=== PATIENT | female | born 1935 | race Caucasian/White ===

== ENCOUNTER 2019-10-12 10:43 | Observation (INO) ==
[2019-10-12] MEDS ORDERED: IOPAMIDOL 100 ML BOTTLE IV ONE (10:44)
[2019-10-12] MEDS ORDERED: 0.9 % SODIUM CHLORIDE 1,000 ML IV ONE (11:02)
[2019-10-12] MEDS ORDERED: METOPROLOL TARTRATE 5 MG/5 ML VIAL IV ONE ×2 (11:02→20:17)
[2019-10-12] MEDS ORDERED: MAGNESIUM SULFATE 2 GM/50 ML BAG IV ONE (11:02)
--- NOTE | 2019-10-12 11:05 | Emergency Department Note ---
General Adult HPI - General Chief complaint: Blood Pressure Problem Stated complaint: high BP Time Seen by Provider: 10/12/19 11:02 Source: patient, family Mode of arrival: wheelchair Limitations: no limitations - History of Present Illness HPI Narrative: 84-year-old female comes in for high blood pressure, headache. She was tachycardic in the 120s and 30s. She is on several blood pressure medicines including amlodipine, losartan, metoprolol, triamterene/hydrochlorothiazide. Blood pressures have been in the 160s up to 200 systolic at home. Here today it is not quite that high but in the 160s. No trouble urinating or with a bowel movement. Normal bowel movement this morning. She is having trouble thinking straight and so her son are helping with history and review of systems. No trouble breathing. Unclear if she has had a fever. Noted general malaise and fatigue - Related Data Home Medications Medication Instructions Recorded Confirmed aspirin 81 mg chewable tablet 81 mg PO QDAY 08/17/19 09/19/19 atorvastatin 10 mg tablet 10 mg PO QPM 08/17/19 09/19/19 blood sugar diagnostic See Rx Instructions .ROUTE 08/17/19 09/19/19 .MEDSUPPLY #10 each carbidopa 25 mg-levodopa 100 mg 1 tab PO .Noon tab 08/17/19 09/19/19 tablet clopidogrel 75 mg tablet 75 mg PO QAM tab 08/17/19 09/19/19 duloxetine 60 mg capsule,delayed 60 mg PO .Noon cap 08/17/19 09/19/19 release glimepiride 4 mg tablet 4 mg PO .Noon tab 08/17/19 09/19/19 losartan 100 mg tablet 100 mg PO QHS tab 08/17/19 09/19/19 metformin 500 mg tablet,extended 1,000 mg PO QPM 08/17/19 09/19/19 release 24 hr metoprolol succinate 100 mg 100 mg PO BID 08/17/19 09/19/19 tablet,extended release 24 hr ropinirole 1 mg tablet 1 mg PO BID tab 08/17/19 09/19/19 tramadol 50 mg tablet 50 mg PO QID PRN tab 08/17/19 09/19/19 trazodone 100 mg tablet 100 mg PO QHS 08/17/19 09/19/19 triamterene 37.5 1 tab PO QAM tab 08/17/19 09/19/19 mg-hydrochlorothiazide 25 mg tablet Previous Rx's Medication Instructions Recorded diaper,brief,adult,disposable See Rx Instructions .ROUTE 09/08/19 .MEDSUPPLY #68 each gabapentin 300 mg capsule 300 mg PO QHS #30 cap 09/19/19 amlodipine 2.5 mg tablet 5 mg PO BID #120 tab 10/05/19 Allergies Allergy/AdvReac Type Severity Reaction Status Date / Time No Known Drug Allergies Allergy Verified 10/12/19 10:43 Review of Systems All systems ED: reviewed and negative except as stated. Past Medical History - Past Medical History Attestation: Yes: The following information was validated with the patient. [facility] Narrative: Family History (Last Reviewed 08/31/19 @ 13:08 by Kailey Hampton CMA) Unknown Cancer Stroke Mother Ovarian cancer Father Vascular disorder Medical History (Last Reviewed 08/31/19 @ 13:07 by Kailey Hampton CMA) Macular degeneration (Chronic) Diabetic eye exam (Chronic ~05/26/18) Comprehensive diabetic foot examination, type 2 DM, encounter for (Chronic ~09/08/18) Gout (Chronic) Arthritis (Chronic) Poor sleep (Chronic) Depression (Chronic) Depression screening (Chronic ~04/30/18) BMI 36.0-36.9,adult (Chronic) Trochanteric bursitis, right hip (Chronic) Borderline type 2 diabetes mellitus (Chronic) Stroke (Chronic ~2011) UTI (urinary tract infection) (Chronic) Essential tremor (Chronic) HTN (hypertension) (Chronic) Fatigue (Chronic) B12 deficiency anemia (Chronic) Chronic kidney disease, stage 3 (moderate) (Chronic) Hyperlipidemia (Chronic) Chronic right hip pain (Chronic) Dehydration (Chronic) Iron deficiency anemia (Chronic) Acute pain of right knee (Chronic) Osteoarthritis of right knee (Chronic) 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 Alert oriented able to answer questions appropriately-but she is clearly frustrated with her healthcare situation and defers to her children. Normocephalic atraumatic. Conjunctive are clear sclerae white nonicteric. Extraocular movements are intact. No nasal discharge or congestion. Oropharynx is pink and moist. Posterior pharynx is clear. Neck is supple without lymphadenopathy thyromegaly or carotid bruit. Heart is mildly tachycardic and I can occasionally hear a skipped beat consistent with PVCs I see on the rhythm strip/telemetry. She does have a 2 out of 6 early systolic murmur. Lungs are clear to auscultation bilaterally without wheezes rales rhonchi or respiratory distress. Abdomen is soft mildly diffusely tender but no point tenderness rebound peritoneal signs or guarding. No rigidity. No pedal edema. Limitations: no limitations Course Vital Signs Temperature 96.8 F L 10/12/19 10:43 Pulse Rate 134 H 10/12/19 10:43 Respiratory Rate 18 10/12/19 10:43 Blood Pressure 189/70 10/12/19 10:43 Pulse Oximetry (%) 96 10/12/19 10:43 Temperature 96.8 F L 10/12/19 10:43 Pulse Rate 108 H 10/12/19 17:46 Respiratory Rate 22 10/12/19 17:46 Blood Pressure 186/79 10/12/19 17:46 Pulse Oximetry (%) 95 10/12/19 17:46 Medical Decision Making - Lab Data Lab results reviewed: Yes I reviewed the patient's lab results. Result diagrams: 10/12/19 11:25 10/12/19 11:25 Lab Results 10/12/19 10/12/19 10/12/19 Range/Units 11:25 11:25 11:25 WBC 11.3 H (4.50-11.00) K/mcL RBC 4.94 (3.59-5.38) M/mcL Hgb 13.6 (11.2-15.7) g/dL Hct 42.4 (34.1-44.9) % POC Hct 43.0 (36.0-48.0) % MCV 85.8 (80.0-100.0) fL MCH 27.5 (26.0-34.0) pg MCHC 32.1 (31.0-36.0) g/dL RDW 15.4 H (11.5-14.5) % Plt Count 250 (140-440) K/mcL MPV 10.5 H (7.4-10.4) fL Gran % 81.7 H (38.0-78.0) % Lymph % (Auto) 11.1 L (15.5-49.0) % [place] % (Auto) 6.3 (1.0-12.0) % Eos % (Auto) 0.6 (0.0-7.0) % Baso % (Auto) 0.3 (0.0-2.0) % Gran # 9.22 H (1.80-8.00) K/mcL Lymph # (Auto) 1.25 L (1.50-4.80) K/mcL [place] # (Auto) 0.71 (0.10-0.90) K/mcL Eos # (Auto) 0.07 (0.00-0.70) K/mcL Baso # (Auto) 0.03 (0.00-0.30) K/mcL PT 13.4 (11.9-14.5) sec INR 1.0 (0.9-1.1) D-Dimer 0.78 H (0.00-0.40) ug/ml POC Sodium 135 (133-145) mmol/L Sodium 134 (133-145) mmol/L POC Potassium 3.9 (3.3-5.1) mmol/L Potassium 4.0 (3.3-5.1) mmol/L POC Chloride 101 (96-108) mmol/L Chloride 96 (96-108) mmol/L Carbon Dioxide 22 (22-30) mmol/L POC Total CO2 24 (22-30) mmol/L Anion Gap 16.0 (8-16) POC BUN 32 H (8-23) mg/dl BUN 33 H (8-23) mg/dl Creatinine 1.3 H (0.6-1.1) mg/dl POC Creatinine 1.2 H (0.6-1.1) mg/dl GFR Calculation 37 Glucose 218 H (70-105) mg/dL POC Glucose 208 H (70-105) mg/dL Calcium 9.6 (8.6-10.4) mg/dl POC WB Ioniz Calcium 1.15 L (1.16-1.32) mmol/L Magnesium 1.7 (1.6-2.5) mg/dL Total Bilirubin 0.4 (0.0-1.0) mg/dL AST 12 (0-37) U/l ALT 15 (0-40) U/l Alkaline Phosphatase 117 (39-117) U/L Troponin T (0-0.03) ng/ml Total Protein 7.0 (5.9-8.4) gm/dL Albumin 3.6 (3.2-5.2) gm/dL Globulin 3.4 (2.2-3.7) gm/dL Albumin/Globulin Ratio 1.1 (1.0-2.3) TSH 0.84 (0.27-5.01) uIU/ml Urine Color Urine Appearance Urine pH (5.0-9.0) Ur Specific [place] (1.000-1.035) Urine Protein (NEG) mg/dL Urine Glucose (UA) (NEG) mg/dL Urine Ketones (NEG) mg/dL Urine Occult Blood (<0.03) mg/dL Urine Nitrate (NEG) Urine Bilirubin (NEG) mg/dL Urine Urobilinogen (NEG) mg/dL Ur Leukocyte Esterase (NEG) /uL Urine RBC (0-1) /hpf Urine WBC (0-4) /hpf Ur Squamous Epith Cells (0-4) /hpf Ur Transition Epith Cell (0-2) /hpf Urine Bacteria (0) /hpf Ur Culture Indicated? 10/12/19 10/12/19 10/12/19 Range/Units 11:25 13:22 15:58 WBC (4.50-11.00) K/mcL RBC (3.59-5.38) M/mcL Hgb (11.2-15.7) g/dL Hct (34.1-44.9) % POC Hct (36.0-48.0) % MCV (80.0-100.0) fL MCH (26.0-34.0) pg MCHC (31.0-36.0) g/dL RDW (11.5-14.5) % Plt Count (140-440) K/mcL MPV (7.4-10.4) fL Gran % (38.0-78.0) % Lymph % (Auto) (15.5-49.0) % [place] % (Auto) (1.0-12.0) % Eos % (Auto) (0.0-7.0) % Baso % (Auto) (0.0-2.0) % Gran # (1.80-8.00) K/mcL Lymph # (Auto) (1.50-4.80) K/mcL [place] # (Auto) (0.10-0.90) K/mcL Eos # (Auto) (0.00-0.70) K/mcL Baso # (Auto) (0.00-0.30) K/mcL PT (11.9-14.5) sec INR (0.9-1.1) D-Dimer (0.00-0.40) ug/ml POC Sodium (133-145) mmol/L Sodium (133-145) mmol/L POC Potassium (3.3-5.1) mmol/L Potassium (3.3-5.1) mmol/L POC Chloride (96-108) mmol/L Chloride (96-108) mmol/L Carbon Dioxide (22-30) mmol/L POC Total CO2 (22-30) mmol/L Anion Gap (8-16) POC BUN (8-23) mg/dl BUN (8-23) mg/dl Creatinine (0.6-1.1) mg/dl POC Creatinine (0.6-1.1) mg/dl GFR Calculation Glucose (70-105) mg/dL POC Glucose (70-105) mg/dL Calcium (8.6-10.4) mg/dl POC WB Ioniz Calcium (1.16-1.32) mmol/L Magnesium (1.6-2.5) mg/dL Total Bilirubin (0.0-1.0) mg/dL AST (0-37) U/l ALT (0-40) U/l Alkaline Phosphatase (39-117) U/L Troponin T 0.03 0.02 (0-0.03) ng/ml Total Protein (5.9-8.4) gm/dL Albumin (3.2-5.2) gm/dL Globulin (2.2-3.7) gm/dL Albumin/Globulin Ratio (1.0-2.3) TSH (0.27-5.01) uIU/ml Urine Color Yellow Urine Appearance Clear Urine pH 7.0 (5.0-9.0) Ur Specific [place] 1.021 (1.000-1.035) Urine Protein 100 A (NEG) mg/dL Urine Glucose (UA) Negative (NEG) mg/dL Urine Ketones Neg (NEG) mg/dL Urine Occult Blood Neg (<0.03) mg/dL Urine Nitrate Neg (NEG) Urine Bilirubin Neg (NEG) mg/dL Urine Urobilinogen Neg (NEG) mg/dL Ur Leukocyte Esterase 25 A (NEG) /uL Urine RBC 1 (0-1) /hpf Urine WBC 5 H (0-4) /hpf Ur Squamous Epith Cells < 1 (0-4) /hpf Ur Transition Epith Cell < 1 (0-2) /hpf Urine Bacteria 0 (0) /hpf Ur Culture Indicated? No - Radiology Data Radiology results reviewed: Yes I reviewed the patient's radiology results. Chest x-ray shows chronic findings of likely interstitial disease but no acute findings CTA of the chest shows multiple incidental findings but no serious acute findings including no pulmonary emboli - EKG Data EKG #1 EKG attestation: Yes I reviewed and interpreted this EKG., Yes There are no EKG findings of acute coronary syndrome, Yes This EKG will be read by prorate clerk EKG results narrative: Sinus tachycardia with a rate of 120 with occasional PVCs. Left atrial enlargement. Long QT. Disposition Pt seen by STOCK AND STATION AGENT/PA only: No Clinical Impression: Sinus tachycardia, Hypertensive urgency Summary: Concern for A. fib with RVR based on telemetry so we will get an EKG. If this is just a sinus tachycardia we will look for other causes including underlying infection. Ordered laboratory including urinalysis EKG chest x-ray. We will start some IV metoprolol and fluids Influenza swab is negative EKG shows sinus tachycardia-P waves for every QRS. Occasional PVC. Chest x-ray was unrevealing. CT angiogram of the chest shows no pulmonary emboli but one small pulmonary nodule that will require follow-up. Metoprolol did not help much but then she is already on oral. IV hydralazine helped some-this was very temporary We then tried Spironolactone which brought blood pressure into the 170s and 180s-but did not make a significant difference. Mag rider did help with PVCs however Headaches seem to be tied to her elevated blood pressure. We then started a nitroglycerin drip. Troponin was at the top end of normal range so was repeated 3 hours later-it actually went down Hospitalist was consulted for admission for hypertensive urgency-discussed the c ase with Dr. Lloyd Barnett, agreed to accept patient for further care and evaluation in the hospital Disposition: Xfer As Inpt ([facility]) Condition: Fair Referrals: Jessica Sow ARNP [Primary Care Provider] -
[2019-10-12 11:34] LABS: POC Blood Urea Nitrogen 32 mg/dl (8-23); POC CO2 24 mmol/L (22-30); POC Calcium, Ionized 1.15 mmol/L (1.16-1.32); POC Chloride 101 mmol/L (96-108); POC Creatinine 1.2 mg/dl (0.6-1.1); POC Glucose, Random 208 mg/dL (70-105); POC Potassium 3.9 mmol/L (3.3-5.1); POC Sodium 135 mmol/L (133-145)
--- NOTE | 2019-10-12 11:54 | XRay Report ---
HISTORY: Cardiac dysrhythmia and hypertension FINDINGS: The heart is normal in size and contour. There is no congestive heart failure. Mild increased interstitial lung markings are present in both lower lobes and around the jessica. There is no lobar consolidation. The right diaphragm is mild to moderately elevated. No pleural effusion is present. Comparison with the prior exam from 09/28/18 shows the interstitial lung disease has become worse. The elevation right diaphragm is chronic. IMPRESSION: No evidence of congestive heart failure Mild interstitial lung disease bilaterally. This is probably due to an inflammatory reaction. There may be some underlying interstitial fibrosis. Interpreted and Authenticated by: Johnny Tanner 10/12/19
[2019-10-12 12:03] LABS: Basophils # (Auto) 0.03 K/mcL (0.00-0.30); Basophils % (Auto) 0.3 % (0.0-2.0); Eosinophils # (Auto) 0.07 K/mcL (0.00-0.70); Eosinophils % (Auto) 0.6 % (0.0-7.0); Granulocytes % (Auto) 81.7 % (38.0-78.0); Hematocrit 42.4 % (34.1-44.9); Hemoglobin 13.6 g/dL (11.2-15.7); Lymphocytes # (Auto) 1.25 K/mcL (1.50-4.80); Lymphocytes % (Auto) 11.1 % (15.5-49.0); Mean Cell Volume 85.8 fL (80.0-100.0); Mean Corpuscular HGB Conc 32.1 g/dL (31.0-36.0); Mean Platelet Volume 10.5 fL (7.4-10.4); Monocytes # (Auto) 0.71 K/mcL (0.10-0.90); Monocytes % (Auto) 6.3 % (1.0-12.0); Platelet Count 250 K/mcL (140-440); RBC 4.94 M/mcL (3.59-5.38); Red Cell Distribution Width 15.4 % (11.5-14.5); WBC 11.3 K/mcL (4.50-11.00)
[2019-10-12 12:17] LABS: Prothrombin Time 13.4 sec (11.9-14.5)
[2019-10-12] MEDS ORDERED: hydrALAZINE 20 MG/ML VIAL IV ONE (12:30)
[2019-10-12 12:32] LABS: ALT/SGPT 15 U/l (0-40); AST/SGOT 12 U/l (0-37); Albumin 3.6 gm/dL (3.2-5.2); Albumin/Globulin Ratio 1.1 (1.0-2.3); Alkaline Phosphatase 117 U/L (39-117); Bilirubin,Total 0.4 mg/dL (0.0-1.0); Blood Urea Nitrogen 33 mg/dl (8-23); Calcium 9.6 mg/dl (8.6-10.4); Carbon Dioxide 22 mmol/L (22-30); Chloride 96 mmol/L (96-108); Globulin 3.4 gm/dL (2.2-3.7); Glomerular Filtration Rate 37; Glucose 218 mg/dL (70-105); Thyroid Stimulating Hormone 0.84 uIU/ml (0.27-5.01)
--- NOTE | 2019-10-12 13:12 | Cat Scan Report ---
History: Elevated serum d-dimer level, hypertension and tachycardia TECHNIQUE: The chest was imaged following injection of intravenous nonionic contrast scanning during the pulmonary arterial phase from the thoracic inlet to the adrenals. Sagittal, coronal and axial MIPS images were created. The radiation exposure was limited using dose reduction technology. FINDINGS: The pulmonary arteries are normal without evidence of emboli. The aorta is normal in caliber. There is a large amount calcified plaque along the aortic arch and descending aorta. There is no dissection. Plaque formation is also seen at the origins of the great vessels in the thoracic inlet. Heart size is normal. Moderate amount of calcified plaque is present in the coronary arteries. There is no pericardial effusion. Left lobe of the thyroid is enlarged and heterogeneous. It contains cysts and small solid nodular densities. This is probably a goiter. There are several small scattered calcified granulomata in both lungs measuring up to 3 mm in size. There are bands of scar tissue in the right middle lobe, lingula and lung bases. In the left apex there is a 5 x 6 mm noncalcified irregularly shaped nodule. There are several small to intermediate size lymph nodes in the mediastinum. The largest is in the subcarinal space and measures 1 x 2.1 cm. No enlarged hilar lymph nodes are present. There are several small noncalcified nodular densities within the lumen of the trachea which measure from 1 to 3 mm in size. IMPRESSION: No evidence of pulmonary emboli Old granulomatous disease and mild pulmonary fibrosis Nonspecific 5 x 6 mm nodule in the left upper lobe. This is too small to biopsy or to characterize by PET CT scan. Follow-up unenhanced chest CT in six months is recommended. Enlarged left lobe of the thyroid which is more likely a goiter rather than neoplasm. Moderate atherosclerotic coronary artery disease Dr. Wong was called with the results Interpreted and Authenticated by: Johnny Tanner 10/12/19
[2019-10-12 13:54] LABS: Appearance,Urine CLEAR; Bacteria,Urine 0 /hpf (0); Bilirubin,Urine NEG (NEG); Color,Urine YELLOW; Culture Indicated,Urine NO; Glucose,Urine (UA) NEGATIVE (NEG); Ketones,Urine NEG (NEG); Leukocyte Esterase,Urine 25 /uL (NEG); Nitrate,Urine NEG (NEG); Protein,Urine 100 mg/dL (NEG); Specific Gravity,Urine 1.021 (1.000-1.035); Urine Blood NEG mg/dL (<0.03); Urine RBC 1 /hpf (0-1); Urine Squamous Epithelial Cell < 1 /hpf (0-4); Urine Transitional Epi Cells < 1 /hpf (0-2); Urine WBC 5 /hpf (0-4); Urobilinogen,Urine NEG (NEG)
[2019-10-12] MEDS ORDERED: SPIRONOLACTONE 25 MG TABLET PO ONE (14:10)
[2019-10-12] MEDS ORDERED: NITROGLYCERIN/D5W 25 MG/250 ML BOTTLE IV SCH (16:45)
[2019-10-12] MEDS ORDERED: 0.9 % SODIUM CHLORIDE 250 ML IV SCH (16:45)
[2019-10-12] MEDS ORDERED: SENNOSIDES 1 TABLET PO PRN (18:11)
[2019-10-12] MEDS ORDERED: LACTULOSE 20 GM/30 ML ORAL.SOL PO PRN ×2 (18:11→20:17)
[2019-10-12] MEDS ORDERED: ONDANSETRON 4 MG/2 ML VIAL IV PRN (18:11)
[2019-10-12] MEDS ORDERED: ENALAPRILAT 1.25 MG/ML VIAL IV ONE ×2 (18:18→20:17)
[2019-10-12] MEDS ORDERED: LOSARTAN 50 MG TABLET PO SCH (18:19)
[2019-10-12] MEDS ORDERED: METOPROLOL SUCCINATE 50 MG TAB.XL.24H PO SCH (18:20)
[2019-10-12] MEDS: NITROGLYCERIN/D5W 25 MG/250 ML BOTTLE IV SCH (20:44)
[2019-10-12] MEDS: 0.9 % SODIUM CHLORIDE 250 ML IV SCH ×2 (20:45→20:47)
[2019-10-12] MEDS: LOSARTAN 50 MG TABLET PO SCH (20:55)
[2019-10-12] MEDS: METOPROLOL SUCCINATE 50 MG TAB.XL.24H PO SCH (20:55)
[2019-10-12] MEDS ORDERED: DOCUSATE SODIUM 100 MG CAPSULE PO SCH (21:00)
[2019-10-12] MEDS ORDERED: hydrALAZINE 25 MG TABLET PO SCH (21:00)
[2019-10-12] MEDS ORDERED: traMADol 50 MG TABLET PO PRN (21:15)
--- NOTE | 2019-10-12 21:29 | Internal Med History&Physical ---
Medical - H&P: HPI Patient information: Note initiated : 10/12/19 at 9:23 pm Service Date, if different from initiated Date: [] Patient: Xiomara Carty a 84 y/o F admitted on 10/12/19 for High BP. Chief Complaint: [] headache malaise Chief complaint: Headache and malaise History of present illness: Ms. Carty is a 84 year old F with hypertension on multiple medications at high dose usually running 140/90 but not 200. She lives alone but medications set out by her son in a pill box. She takes them faithfully twice a day. HR usually not elevated and she denies stress, anxiety, fear or pain other than headache and chest pain since last PM. SCHMIDT 8/10 and chest pain /. Headache improved in EMD but then worsened again and she is on a NTG drip. She came in about noon. She has had metoprolol 5 mg IV, hydralazine 10 mg IV and NTG drip. I order metoprolol and enalaprilat IV earlier but she has received it about 15 mins ago. Pt denies visual deficit. She report feeling groggy but not sleeping well. She is not confused. She has baseline presbycusis and uses hearing aids currently not in. Speaking mod tone in room she does hear ok on exam. pt report CVA 7 years ago. Recall full recovery. Uses a walker or cane due to DJD of knees. - Constitutional Constitutional: Present: headache(s), lethargy, malaise. Absent: frequent falls - EENT Additional comments: admits to unequal pupils as result of CVA 7 years ago - Cardiovascular Cardiovascular: Present: as per HPI, chest pain, rapid heart rate. Absent: diaphoresis, radiating jaw, neck or arm pain - Respiratory Respiratory: Absent: cough, dyspnea - Gastrointestinal Gastrointestinal: Absent: abdominal pain, change in bowel habits, vomiting - Genitourinary Genitourinary: Present: as per HPI. Absent: difficulty urinating - Musculoskeletal Musculoskeletal: Absent: back pain, neck pain - Neurological Neurological: Present: abnormal hearing. Absent: abnormal gait, confusion, frequent falls (no falls or head injury), syncope Medical - H&P: PMH Social history: lives alone wants DNR status reviewed with patient Smoking status: Former smoker (only a pack a week for a year 35 years ago. didnt like it) Have you smoked in the last 12 months: No Drug use: none Alcohol use: none Medical - H&P: Meds Home Medications Medication Instructions Recorded Confirmed Type aspirin 81 mg chewable tablet 81 mg PO QDAY 08/17/19 10/12/19 History atorvastatin 10 mg tablet 10 mg PO QPM 08/17/19 10/12/19 History blood sugar diagnostic See Rx Instructions .ROUTE 08/17/19 09/19/19 History .MEDSUPPLY #10 each carbidopa 25 mg-levodopa 100 mg 1 tab PO .Noon tab 08/17/19 10/12/19 History tablet clopidogrel 75 mg tablet 75 mg PO QAM tab 08/17/19 10/12/19 History duloxetine 60 mg capsule,delayed 60 mg PO .Noon cap 08/17/19 10/12/19 History release glimepiride 4 mg tablet 4 mg PO .Noon tab 08/17/19 10/12/19 History losartan 100 mg tablet 100 mg PO QHS tab 08/17/19 10/12/19 History metformin 500 mg tablet,extended 1,000 mg PO QPM 08/17/19 10/12/19 History release 24 hr metoprolol succinate 100 mg 100 mg PO BID 08/17/19 10/12/19 History tablet,extended release 24 hr ropinirole 1 mg tablet 1 mg PO BID tab 08/17/19 10/12/19 History tramadol 50 mg tablet 50 mg PO QID PRN tab 08/17/19 10/12/19 History trazodone 100 mg tablet 100 mg PO QHS 08/17/19 10/12/19 History triamterene 37.5 1 tab PO QAM tab 08/17/19 10/12/19 History mg-hydrochlorothiazide 25 mg tablet diaper,brief,adult,disposable See Rx Instructions .ROUTE 09/08/19 09/19/19 Rx .MEDSUPPLY #68 each gabapentin 300 mg capsule 300 mg PO QHS #30 cap 09/19/19 10/12/19 Rx amlodipine 2.5 mg tablet 5 mg PO BID #120 tab 10/05/19 10/12/19 Rx Allergies Allergy/AdvReac Type Severity Reaction Status Date / Time No Known Drug Allergies Allergy Verified 10/12/19 10:43 Medical - H&P: Exam - Constitutional Vitals: Temp Pulse Resp BP Pulse Ox 98.2 F 96 H 14 185/73 92 10/12/19 20:14 10/12/19 21:13 10/12/19 21:13 10/12/19 21:11 10/12/19 21:13 General appearance: obese - Head Head exam: Present: atraumatic - Eye Eye exam: Absent: PERRL (right 5mm and reactive left 4 mm and reactive) Pupils: Present: normal accommodation, unequal - Neck Neck exam: Present: normal inspection. Absent: tenderness - Expanded Neck Exam Neck exam: Absent: carotid bruit - Respiratory Respiratory exam: Present: normal respiratory exam, CTAB - Cardiovascular Cardiovascular exam: Present: normal rate and rhythm - GI/Abdominal GI/Abdominal exam: Present: normal bowel sounds. Absent: tenderness - Rectal Rectal exam: Present: deferred - Extremities Exam Extremities exam: Present: normal inspection. Absent: calf tenderness, pedal edema, tenderness Additional comments: bruise on anterior thigh football shaped 2 x 3 inches not firm or tender - Expanded Lower Extremities Exam Knee exam: Present: ecchymosis (from recent steroid injection) - Neurological Exam Neurological exam: Present: oriented X3 Additional comments: moves all extremities symmetrically - Psychiatric Psychiatric exam: Present: normal affect, normal mood - Skin Skin exam: Present: dry, warm Medical - H&P: Reslt - Labs CBC & Chem 7: 10/12/19 11:25 10/12/19 11:25 Labs: Short CBC 10/12/19 Range/Units 11:25 WBC 11.3 H (4.50-11.00) K/mcL Hgb 13.6 (11.2-15.7) g/dL Hct 42.4 (34.1-44.9) % Plt Count 250 (140-440) K/mcL BMP 10/12/19 11:25 Sodium 134 Potassium 4.0 Chloride 96 Carbon Dioxide 22 BUN 33 H Creatinine 1.3 H Glucose 218 H Calcium 9.6 Cardiac Enzymes 10/12/19 10/12/19 Range/Units 11:25 15:58 Troponin T 0.03 0.02 (0-0.03) ng/ml Liver Function 10/12/19 Range/Units 11:25 Total Bilirubin 0.4 (0.0-1.0) mg/dL AST 12 (0-37) U/l ALT 15 (0-40) U/l Alkaline Phosphatase 117 (39-117) U/L Albumin 3.6 (3.2-5.2) gm/dL Urine 10/12/19 Range/Units 13:22 Urine Color Yellow Urine Appearance Clear Urine pH 7.0 (5.0-9.0) Ur Specific [place] 1.021 (1.000-1.035) Urine Protein 100 A (NEG) mg/dL Urine Glucose (UA) Negative (NEG) mg/dL - EKG Data -: EKG Interpreted by Myself EKG shows normal: sinus rhythm Rate: tachycardia - EKG Data EKG comments: 10/12/19 21:36 LAE - Imaging and Cardiology Chest x-ray Status: image reviewed by me Additional comments: normal appearance Medical - H&P: A/P (1) Headache Problem details: pt taking her BP and came in with HR 130 and sbp over 200. new headache and feels groggy. Didnt sleep as result last night. BP still high on NTG drip. will check non Contrast CT head looking for bleed or new CVA Current visit: Yes Status: Acute (2) Sinus tachycardia Current visit: Yes Status: Acute with chest pain and hypertension. looking for NON PROFIT DIRECTOR etiology. cont with progressive care admission for IV BP medications. resume home meds. Mag was 1.7 but replaced also so should not be the cause (3) Hypertensive urgency Problem details: as above. chest pressure pain, Troponin downtrending normal control BP and follow symptoms. EKG ok CXR OK Current visit: Yes Status: Acute (4) Chronic kidney disease, stage 3 (moderate) Current visit: No Status: Chronic hold metformin due to CKD and contrast CTA (5) Type 2 diabetes mellitus with peripheral neuropathy Current visit: No Status: Chronic diabetic diet and follow. hold metformin. Start SSI Medical - H&P: Qual - Stroke Contraindication Not Initiating IV-Tpa: Not indicated
[2019-10-12] MEDS ORDERED: DEXTROSE 31 GM ORAL.SUSP PO PRN (21:46)
[2019-10-12] MEDS ORDERED: DEXTROSE 50% 50 ML VIAL IV PRN (21:46)
[2019-10-12] MEDS ORDERED: 0.9 % SODIUM CHLORIDE 10 ML SYRINGE IV SCH (22:00)
[2019-10-12] MEDS: hydrALAZINE 25 MG TABLET PO SCH (22:17)
[2019-10-12] MEDS: GABAPENTIN 300 MG CAPSULE PO SCH (22:17)
[2019-10-12] MEDS: ATORVASTATIN 20 MG TABLET PO SCH (22:17)
[2019-10-12] MEDS: rOPINIRole 1 MG TABLET PO SCH (22:17)
[2019-10-13 07:05] LABS: Blood Urea Nitrogen 26 mg/dl (8-23); Calcium 9.1 mg/dl (8.6-10.4); Carbon Dioxide 23 mmol/L (22-30); Chloride 102 mmol/L (96-108); Glomerular Filtration Rate 51; Glucose 119 mg/dL (70-105)
--- NOTE | 2019-10-13 07:50 | Cat Scan Report ---
History: Headache, hypertension, tachycardia and stroke TECHNIQUE: The brain was imaged without contrast at 2.5 mm intervals. Sagittal and coronal reformats were created. The radiation exposure was limited using dose reduction technology. FINDINGS: There is a large old infarct with encephalomalacia in the distribution of the left posterior cerebral artery. It Involves the left occipital lobe, posterior medial aspect of the left temporal and parietal lobes. No acute infarct is detected. There is no hemorrhage or mass effect. The ventricles are normal in size. No abnormal extra-axial fluid collection is present. IMPRESSION: Large old infarct in the distribution of the left posterior cerebral artery No acute abnormality Interpreted and Authenticated by: Johnny Tanner 10/13/19
[2019-10-13] MEDS: 0.9 % SODIUM CHLORIDE 250 ML IV SCH ×3 (07:59→20:09)
[2019-10-13] MEDS: CLOPIDOGREL 75 MG TABLET PO SCH (08:14)
[2019-10-13] MEDS: INSULIN LISPRO 1 UNIT/0.01 ML UNIT SQ SCH ×4 (08:14→21:31)
[2019-10-13] MEDS: hydrALAZINE 25 MG TABLET PO SCH ×4 (08:14→21:08)
[2019-10-13] MEDS: METOPROLOL SUCCINATE 50 MG TAB.XL.24H PO SCH (08:14)
[2019-10-13] MEDS: rOPINIRole 1 MG TABLET PO SCH ×2 (08:14→21:20)
[2019-10-13] MEDS: ASPIRIN 81 MG TAB.CHEW PO SCH (08:14)
[2019-10-13] MEDS: LOSARTAN 50 MG TABLET PO SCH (08:14)
--- NOTE | 2019-10-13 11:15 | Internal Med Progress Note ---
Medical - PN: Subj Patient information: Note initiated : 10/13/19 at 11:11 am Service Date, if different from initiated Date: [] Patient: Xiomara Carty 84 y/o F admitted on 10/12/19 for High BP. Chief Complaint: [lethargy and headache] Interval history: pt responded well to IV metoprolol and HR down from 130 to 85 but home pill bottles and pill organizer confirmed this morning she is in fact taking her meds correctly as prescribed including metoprolol 100 mg bid and losartan 100 mg pm. She recently had amlodipine increased to 5 mg bid and is also on triam/hctz. Pot has been normal here 4.0 but Rosalina does recall possibly some low pot before. BP this morning as low as 120 systolic but up to 170 again now so discharge is held especially since her bp meds need to be adjusted further and were not just missed. Pt report SCHMIDT 4 now and chest pain down also but didnt sleep well. - Constitutional Vitals: Vital Signs Temp Pulse Resp BP Pulse Ox 98.1 F 76 16 177/66 91 10/13/19 04:01 10/13/19 06:46 10/13/19 08:27 10/13/19 08:22 10/13/19 06:46 Period Temp Pulse Resp BP Sys/Su Pulse Ox Last 24 Hr 98.1 F-98.2 F 64-121 12-25 105-228/41-182 88-99 Intake and Output 10/12/19 10/13/19 10/13/19 21:59 05:59 13:59 Intake Total 12 455 240 Output Total 450 375 350 Balance -438 80 -110 Weight 192 lb 14.4 oz Intake & Output: Intake & Output 10/12/19 10/13/19 10/13/19 21:59 05:59 13:59 Intake Total 12 455 240 Output Total 450 375 350 Balance -438 80 -110 Weight 192 lb 14.4 oz Intake: IV 12 95 Sodium Chloride 0.9% 250 ml @ 75 20 mls/hr IV .[id number] MELISSA Rx#: [id number] NITROGLYCERIN/D5W 25 mg In 250 12 20 ml @ 5 MCG/MIN 3 mls/hr IV . Q24H MELISSA Rx#:[id number] Oral 360 240 Output: Urine Catheter Amount 350 Void Amount 450 375 Other: Meal Breakfast Percent of Meal Consumed 50% Urine Appearance Clear Clear Clear Urine Color Bright Yellow Bright Yellow Dark Yellow General appearance: obese - Respiratory Respiratory exam: Present: CTAB - Cardiovascular Cardiovascular exam: Present: normal rate and rhythm, systolic murmur Additional comments: RUSB 4-5/6 - GI/Abdominal GI/Abdominal exam: Present: soft. Absent: tenderness - Neurological Exam Neurological exam: Present: alert, oriented X3 - Psychiatric Psychiatric exam: Present: normal affect, normal mood - Skin Skin exam: Present: dry, warm Medical - PN: Obj Da - Labs CBC & Chem 7: 10/12/19 11:25 10/13/19 05:05 Labs: Abnormal Lab Results 10/13/19 10/12/19 10/12/19 05:05 13:22 11:25 WBC RDW MPV Gran % Lymph % (Auto) Gran # Lymph # (Auto) D-Dimer POC BUN 32 H BUN 26 H 33 H Creatinine 1.3 H POC Creatinine 1.2 H Glucose 119 H 218 H POC Glucose 208 H POC WB Ioniz Calcium 1.15 L Urine Protein 100 A Ur Leukocyte Esterase 25 A Urine WBC 5 H 10/12/19 10/12/19 11:25 11:25 WBC 11.3 H RDW 15.4 H MPV 10.5 H Gran % 81.7 H Lymph % (Auto) 11.1 L Gran # 9.22 H Lymph # (Auto) 1.25 L D-Dimer 0.78 H POC BUN BUN Creatinine POC Creatinine Glucose POC Glucose POC WB Ioniz Calcium Urine Protein Ur Leukocyte Esterase Urine WBC Meds: Medications Allopurinol (Zyloprim) 200 mg PO HS [facility] Aspirin (Aspirin) 81 mg PO QDAY [facility] Last Admin: 10/13/19 08:14 Dose: 81 mg Documented by: Atorvastatin Calcium (Lipitor) 10 mg PO QPM [facility] Last Admin: 10/12/19 22:17 Dose: 10 mg Documented by: Carbidopa/Levodopa (Sinemet 25/100) 1 tab PO DAILY@1200 [facility] Carvedilol (Coreg) 12.5 mg PO BIDCC [facility] Clopidogrel Bisulfate (Plavix) 75 mg PO QAM [facility] Last Admin: 10/13/19 08:14 Dose: 75 mg Documented by: Dextrose (Dextrose 50%) 0 ml IV UD PRN PRN Reason: Hypoglycemia Diagnostic Test (Pha) (Accu-Chek) 1 each FS [facility] Last Admin: 10/13/19 07:58 Dose: 1 each Documented by: Duloxetine HCl (Cymbalta) 60 mg PO DAILY@1200 [facility] Gabapentin (Neurontin) 300 mg PO QHS [facility] Last Admin: 10/12/19 22:17 Dose: 300 mg Documented by: Glimepiride (Amaryl) 4 mg PO DAILY@1200 MELISSA Glucose (Insta-Glucose) 15 gm PO PRN PRN PRN Reason: Hypoglycemia Hydralazine HCl (Apresoline) 25 mg PO TID [facility] Last Admin: 10/13/19 08:14 Dose: 25 mg Documented by: Nitroglycerin/Dextrose (Nitroglycerin/D5w) 25 mg in 250 mls @ 3 mls/hr IV .Q24H [facility]; Protocol Last Admin: 10/12/19 20:44 Dose: Not Given Documented by: Sodium Chloride (Sodium Chloride 0.9%) 250 mls @ 20 mls/hr IV .[id number] [facility] Last Admin: 10/13/19 07:59 Dose: Not Given Documented by: Insulin Human Lispro (Humalog) 0 unit SQ [facility]; Protocol Last Admin: 10/13/19 08:14 Dose: 1 units Documented by: Lactulose (Cephulac) 10 gm PO DAILYP PRN PRN Reason: Constipation Losartan Potassium (Cozaar) 50 mg PO BID [facility] Last Admin: 10/13/19 08:14 Dose: 50 mg Documented by: Morphine Sulfate (Morphine) 2 mg IV Q1HP PRN; Protocol PRN Reason: Per Pain Protocol Last Admin: 10/12/19 21:18 Dose: 2 mg Documented by: Non-Formulary Medication (Amlodipine Besylate [Amlodipine Besylate]) 5 mg PO BID [facility] Non-Formulary Medication (Losartan Potassium [Cozaar]) 100 mg PO QHS [facility] Ropinirole HCl (Requip) 1 mg PO BID [facility] Last Admin: 10/13/19 08:14 Dose: 1 mg Documented by: Spironolactone (Aldactone) 50 mg PO BIDD [facility] Tramadol HCl (Ultram) 50 mg PO QIDP PRN PRN Reason: Pain Trazodone HCl (Desyrel) 100 mg PO QHS [facility] Medical - PN: A/P - Time Spent With Patient Total time spent is greater than 50% in coordination of care (as documented) at patient's floor/unit and/or counseling patient: Greater than 35 minutes (1) Hypertensive urgency Problem details: as above. chest pressure pain, Troponin downtrending normal control BP and follow symptoms. EKG ok CXR OK still with some chest pain. murmur heard but with severe htn not likely critical. Will check Echo to look for wall motion abnormality. IF seen will look toward nuclear study to look for CAD as cause of labile HTN. Status: Acute Current Visit: Yes (2) Headache Problem details: pt taking her BP and came in with HR 130 and sbp over 200. new headache and feels groggy. poor sleep symptoms improved as bp better and CT head no new stroke and no bleed Status: Acute Current Visit: Yes (3) Sinus tachycardia Problem details: resolved with beta mahi but no good cause for sinus tachy 130 on admission. Status: Acute Current Visit: Yes (4) Chronic kidney disease, stage 3 (moderate) Status: Chronic Assessment and plan: held metformin due to contrast given Current Visit: Yes (5) Type 2 diabetes mellitus with peripheral neuropathy Status: Chronic Assessment and plan: continue diabetic diet and metformin held due to CKD and CTA chest Current Visit: No
[2019-10-13] MEDS: CARBIDOPA/LEVODOPA 25/100 TABLET PO SCH (12:19)
[2019-10-13] MEDS: DULoxetine 30 MG CAPSULE PO SCH (12:19)
[2019-10-13] MEDS: SPIRONOLACTONE 25 MG TABLET PO SCH ×2 (12:19→15:22)
[2019-10-13] MEDS: GLIMEPIRIDE 2 MG TABLET PO SCH (12:19)
[2019-10-13] MEDS: CARVEDILOL 12.5 MG TABLET PO SCH ×2 (12:19→17:51)
[2019-10-13] MEDS: NITROGLYCERIN/D5W 25 MG/250 ML BOTTLE IV SCH (20:08)
[2019-10-13] MEDS ORDERED: ALLOPURINOL 100 MG TABLET PO SCH (21:00)
[2019-10-13] MEDS ORDERED: LOSARTAN 50 MG TABLET PO SCH (21:00)
[2019-10-13] MEDS ORDERED: traZODone HCL 100 MG TABLET PO SCH (21:00)
[2019-10-13] MEDS: amLODIPine 5 MG TABLET PO SCH (21:06)
[2019-10-13] MEDS: GABAPENTIN 300 MG CAPSULE PO SCH (21:18)
[2019-10-13] MEDS: ATORVASTATIN 20 MG TABLET PO SCH (21:18)
[2019-10-14 07:38] LABS: Blood Urea Nitrogen 30 mg/dl (8-23); Carbon Dioxide 23 mmol/L (22-30); Chloride 99 mmol/L (96-108); Glomerular Filtration Rate 46; Glucose 94 mg/dL (70-105)
[2019-10-14] MEDS: rOPINIRole 1 MG TABLET PO SCH (08:27)
[2019-10-14] MEDS: amLODIPine 5 MG TABLET PO SCH (08:27)
[2019-10-14] MEDS: 0.9 % SODIUM CHLORIDE 250 ML IV SCH (08:27)
[2019-10-14] MEDS: hydrALAZINE 25 MG TABLET PO SCH (08:27)
[2019-10-14] MEDS: SPIRONOLACTONE 25 MG TABLET PO SCH (08:27)
[2019-10-14] MEDS: CLOPIDOGREL 75 MG TABLET PO SCH (08:27)
[2019-10-14] MEDS: CARVEDILOL 12.5 MG TABLET PO SCH (08:27)
[2019-10-14] MEDS: ASPIRIN 81 MG TAB.CHEW PO SCH (08:27)
[2019-10-14] MEDS: INSULIN LISPRO 1 UNIT/0.01 ML UNIT SQ SCH ×2 (09:11→12:05)
--- NOTE | 2019-10-14 10:18 | Discharge Summary ---
Medical - DS: Prov Patient information: Note initiated : 10/14/19 at 10:11 am Service Date, if different from initiated Date: [] Patient: Xiomara Carty 84 y/o F admitted on 10/12/19 for High BP. Chief Complaint: [] Date of admission: 10/12/19 20:05 Discharge date: 10/14/19 Primary care physician: ANDRAE Alaniz Admitting clinician: Mehdi Barnett Attending physician on admission: Mehdi Barnett Consults: 10/12/19 Consult to Physician [CONS] Stat Comment: Consulting Provider: Mehdi Barnett Reason For Exam: Physician to Consult Attending physician on discharge: Mehdi Barnett Discharging clinician: Mehdi Barnett Medical - DS: Meds - Discharge Medications Prescriptions: Spironolactone [Aldactone] 25 mg PO BIDD #60 tab hydrALAZINE [Apresoline] 25 mg PO TID #90 tab Carvedilol [Coreg] 25 mg PO BID #60 tab Transmission Status: Received by [facility] #[id number] Active and Home Medications: Home Medications aspirin 81 mg chewable tablet 81 mg PO QDAY 08/17/19 [History Confirmed 10/13/19 Last Taken 10/12/19] atorvastatin 10 mg tablet 10 mg PO QPM 08/17/19 [History Confirmed 10/13/19 Last Taken 10/11/19] blood sugar diagnostic See Rx Instructions .ROUTE .MEDSUPPLY #10 each 08/17/19 [History Confirmed 10/13/19 Last Taken Unknown] carbidopa 25 mg-levodopa 100 mg tablet 1 tab PO QNOON tab 08/17/19 [History Confirmed 10/13/19 Last Taken 10/11/19] clopidogrel 75 mg tablet 75 mg PO QAM tab 08/17/19 [History Confirmed 10/13/19 Last Taken 10/12/19] duloxetine 60 mg capsule,delayed release 60 mg PO .Noon cap 08/17/19 [History Confirmed 10/13/19 Last Taken 10/11/19] glimepiride 4 mg tablet 4 mg PO .Noon tab 08/17/19 [History Confirmed 10/13/19 Last Taken 10/11/19] losartan 100 mg tablet 100 mg PO QHS tab 08/17/19 [History Confirmed 10/13/19 Last Taken 10/11/19] metformin 500 mg tablet,extended release 24 hr 1,000 mg PO QPM 08/17/19 [History Confirmed 10/13/19 Last Taken 10/11/19] metoprolol succinate 100 mg tablet,extended release 24 hr 100 mg PO BID 08/17/19 [History Confirmed 10/13/19 Last Taken 10/12/19] ropinirole 1 mg tablet 1 mg PO BID tab 08/17/19 [History Confirmed 10/13/19 Last Taken 10/12/19] tramadol 50 mg tablet 50 mg PO QID PRN tab 08/17/19 [History Confirmed 10/13/19 Last Taken 10/10/19] trazodone 100 mg tablet 100 mg PO QHS 08/17/19 [History Confirmed 10/13/19 Last Taken 10/11/19] triamterene 37.5 mg-hydrochlorothiazide 25 mg tablet 1 tab PO QAM tab 08/17/19 [History Confirmed 10/13/19 Last Taken 10/12/19] diaper,brief,adult,disposable See Rx Instructions .ROUTE .MEDSUPPLY #68 each 09/08/19 [Rx Confirmed 10/13/19 Last Taken Unknown] gabapentin 300 mg capsule 300 mg PO QHS #30 cap 09/19/19 [Rx Confirmed 10/13/19 Last Taken 10/11/19] amlodipine 2.5 mg tablet 5 mg PO BID #120 tab 10/05/19 [Rx Confirmed 10/13/19 Last Taken 10/12/19] Allopurinol [Zyloprim] 200 mg PO HS 10/13/19 [History Confirmed 10/13/19 Last Taken Unknown] Medical - DS: Hosp Discharge diagnosis: hypertensive urgency Secondary discharge diagnosis: headache chest pain Reason for admission: hypertensive urgency Pertinent studies/significant findings: EKG and troponins negative - Time Spent with Patient Total time spent providing and/or coordinating discharge services: Greater than 30 minutes Medical - DS: Exam - Constitutional Vitals: Vital Signs Temp Resp BP Pulse Ox 10/14/19 08:01 20 161/67 95 10/14/19 07:27 19 152/67 10/14/19 06:01 14 112/39 10/14/19 05:02 20 131/45 10/14/19 04:01 13 152/52 10/14/19 03:01 17 104/42 10/14/19 02:01 15 116/45 01/31/20 01:31 17 119/33 10/14/19 01:01 17 131/44 10/14/19 00:31 18 143/65 10/14/19 00:01 17 130/101 10/13/19 23:31 19 156/58 10/13/19 23:01 17 159/69 10/13/19 22:31 22 149/106 10/13/19 22:01 17 154/58 10/13/19 21:31 19 172/58 10/13/19 21:01 16 150/58 10/13/19 20:31 22 151/55 10/13/19 20:01 97.2 F 16 137/57 10/13/19 19:46 18 135/57 10/13/19 19:33 24 H 150/51 10/13/19 17:27 18 148/60 10/13/19 15:16 21 145/60 10/13/19 15:01 21 151/57 10/13/19 14:53 20 10/13/19 14:46 15 154/57 10/13/19 14:43 13 157/66 10/13/19 14:31 19 144/56 10/13/19 14:16 16 147/46 10/13/19 14:01 15 131/51 10/13/19 13:46 17 130/42 10/13/19 13:31 16 143/62 10/13/19 13:16 19 154/54 10/13/19 13:00 17 165/53 10/13/19 12:31 15 162/51 10/13/19 12:16 17 170/63 10/13/19 12:04 18 169/60 Intake and Output 10/13/19 10/14/19 10/14/19 21:59 05:59 13:59 Intake Total 560 240 Output Total 400 450 450 Balance 160 -450 -210 Intake: Oral 560 240 Output: Void Amount 400 450 450 Other: Meal Dinner Breakfast Percent of Meal Consumed 100% 25% Feeding Ability Independent Independent Urine Appearance Clear Clear Clear Urine Color Pale Pale Dark Yellow Weight 197 lb 8 oz General appearance: obese - Eye Eye exam: Absent: conjunctival injection, scleral icterus Pupils: Present: unequal. Absent: fixed Additional comments: right 5mm left 4mm stable since admission and both reactive. Pt states this is chronic baseline - Neck Neck exam: Present: normal inspection - Respiratory Respiratory exam: Present: normal respiratory exam, CTAB - Cardiovascular Cardiovascular exam: Present: normal rate and rhythm, systolic murmur (4/6 RUSB) - GI/Abdominal GI/Abdominal exam: Present: normal bowel sounds, soft. Absent: tenderness - Extremities Exam Extremities exam: Absent: calf tenderness, pedal edema - Neurological Exam Neurological exam: Present: alert, oriented X3 - Psychiatric Psychiatric exam: Present: normal affect, normal mood - Skin Skin exam: Present: dry, warm Medical - DS: Data Procedures and tests throughout hospitalization: Echo cardiogram done but report still pending Labs on day of discharge: Labs from last 24 hours 10/14/19 04:49 Sodium 133 Potassium 4.5 Chloride 99 Carbon Dioxide 23 Anion Gap 11.0 BUN 30 H Creatinine 1.1 GFR Calculation 46 Glucose 94 Calcium 9.0 - Additional Comments no bleed. old stroke seen Medical - DS: A/P - Patient/Caregiver Discharge Instructions Activity: resume usual activities as tolerated Diet: Low Sodium (2gm), Cardiac, Consistent Carbohydrate Prescriptions: Spironolactone [Aldactone] 25 mg PO BIDD #60 tab hydrALAZINE [Apresoline] 25 mg PO TID #90 tab Carvedilol [Coreg] 25 mg PO BID #60 tab Transmission Status: Received by [facility] #[id number] - Problem Maintenance (1) Hypertensive urgency Status: Acute Comment: as above. chest pressure resolved with BP control, Troponin downtrending normal EKG ok CXR OK. CT head negative for bleed or new CVA murmur heard but with severe htn not likely critical. Will check Echo to look for wall motion abnormality. IF seen will look toward nuclear study to look for CAD as cause of labile HTN. Pt ready for discharge but Echo report not available. Follow with PCP because BP still high on max dose metoprolol I switched her to Carvediolol 25 mg BID for additional BP lowering effect. Losartan cont 100mg daily. Amlodipine cont 5mg bid. pot low normal on admission with triam/hctz and I stopped that switching to 50 mg spironolactone bid . pot now 4.5. decrease spironolactone to 25 mg bid. added hydralazine 25 mg tid. I cant completely exclude Pheo but BP has been reasonable since admission. We did confirm from pill bottles and her pill boxes that pt was taking [employer] medication as prescribed. Pt with hypertension possibly not essential hypertension. Secondary cause such as hyperaldosteronism and pheochromocytoma are considered. Hence the change to spironoalctone but Im not convinced this is present with certainty. Lastly CTA and CT head negative for acute medical problem to provoke uncontrolled HTN. no dissection, PE or bleed. Echo report just returned shows. EF 60-65% and diastolic dysfunction grade II, LAE, concentric LVH. mod sclerotic aortic valve. no change from 2017. New ischemic heart disease is not suggested by this echo. follow BP and clinically if more chest pain while BP controlled consider lexiscan nuclear. (2) Headache Status: Acute Comment: pt taking her BP and came in with HR 130 and sbp over 200. new headache and feels groggy. poor sleep symptoms improved as bp better and CT head no new stroke and no bleed. Pt reports chronic headaches in adulthood currently 5/10 basically baseline Qualifiers: Headache chronicity pattern: chronic headache Intractability: not intractable (3) Sinus tachycardia Status: Acute Comment: resolved with beta mahi but no good cause for sinus tachy 130 on admission. (4) Chronic kidney disease, stage 3 (moderate) Status: Chronic Comment: improved creatinine. consider discontinue metformin (5) Type 2 diabetes mellitus with peripheral neuropathy Status: Chronic - Follow up Plan Disposition: Home, Self-Care Care Plan Goals: This discharge packet is provided to you to help keep you informed about your care. We want to ensure you get everything you need when you go home. You will also be receiving a call from us in a few days to follow up with you and see how you are doing since your discharge. This gives us a chance to listen to any concerns you maybe experiencing since you were discharged or any additional needs you may have, as well as providing us feedback on your care experience. We strive to always provide excellent care and thank you for your feedback and for choosing [facility]. Plan of Treatment: bp control and follow up with PCP for BMP next Thursday. Prognosis: Fair Rehab Potential: Good I certify that the patient requires SNF services: No Overall status at discharge: patient is progressing back to baseline
[2019-10-14] MEDS: GLIMEPIRIDE 2 MG TABLET PO SCH (12:03)
[2019-10-14] MEDS: DULoxetine 30 MG CAPSULE PO SCH (12:04)
[2019-10-14] MEDS: CARBIDOPA/LEVODOPA 25/100 TABLET PO SCH (12:04)
== END 2019-10-14 13:50 | disposition home or self-care (01) ==
LOC: ICU 10:43 → ED 10:43 → ICU 20:05
PROVIDERS: ADMIT Internal Medicine; ATTEND Internal Medicine

== ENCOUNTER 2020-11-10 11:12 | Inpatient (IN) ==
[2020-11-10] MEDS ORDERED: GADOBENATE DIMEGLUMINE 15 ML/VIAL IV ONE (11:13)
[2020-11-10] MEDS ORDERED: IOPAMIDOL 100 ML BOTTLE IV ONE (11:13)
[2020-11-10] MEDS ORDERED: 0.9 % SODIUM CHLORIDE 1,000 ML IV ONE (11:46)
[2020-11-10] MEDS ORDERED: ACETAMINOPHEN 325 MG TABLET PO ONE (11:46)
--- NOTE | 2020-11-10 11:53 | Emergency Department Note ---
HPI General Chief complaint: Fall Stated complaint: Found on floor by family member, n/v/d Time Seen by Provider: 11/10/20 11:29 Source: patient and EMS Mode of arrival: ambulatory Limitations: no limitations History of Present Illness HPI Narrative: Narrative: 85-year-old female patient brought into the emergency department via ambulance with chief complaint of sudden onset dizziness, mild nausea, headache, and low back pain. Patient mention she received her second Covid vaccine yesterday without issue. While at home last night (proximal around 2100) patient became abruptly dizzy. She leaned against the countertop then gently lowered herself to the floor. During this time she was profoundly weak and unable to get back up. She mentions she laid on the floor all night. Her daughter came by to visit her and found her on the floor and called 911. Upon arrival, patient complains of mild residual dizziness. She mentions a fulminant headache. However, she denies hitting her head or loss of conscious ness. She also complains of mid low back pain. She denies any radicular symptoms. She denies any bowel incontinence. She denies any saddle anesthesia. She mentions being nauseated last night and vomiting x1. She mentions only ingesting ice cream last night. ROS: Denies systemic illness, fever, sweats, chills. Admits to chronic vision changes to the right eye. Denies tinnitus. Denies runny nose, sinus congestion, or cough. Admits to mild shortness of breath. Denies retrosternal chest pain or palpitations. Denies abdominal pain or diarrhea. Denies dysuria, hematuria, urinary frequency, or urinary urgency. Admits to generalized weakness. Related Data Home Medications Medication Instructions Recorded Confirmed allopurinol 200 mg PO HS 11/10/20 11/10/20 amlodipine 2.5 mg PO DAILY 11/10/20 11/10/20 amlodipine 5 mg PO BID 11/10/20 11/10/20 atorvastatin 10 mg PO HS 11/10/20 11/10/20 carbidopa-levodopa 1 tab PO DAILY 11/10/20 11/10/20 carvedilol 25 mg PO BID 11/10/20 11/10/20 clopidogrel 75 mg PO DAILY 11/10/20 11/10/20 duloxetine 60 mg PO DAILY 11/10/20 11/10/20 furosemide 40 mg PO DAILY 11/10/20 11/10/20 gabapentin 300 mg PO HS 11/10/20 11/10/20 glimepiride 4 mg PO DAILY 11/10/20 11/10/20 losartan 100 mg PO HS 11/10/20 11/10/20 ropinirole 1 mg PO BID 11/10/20 11/10/20 tramadol 50 mg PO Q6HP PRN 11/10/20 11/10/20 trazodone 100 mg PO HSP PRN 11/10/20 11/10/20 triamterene-hydrochlorothiazid 1 tab PO DAILY 11/10/20 11/10/20 Allergies Allergy/AdvReac Type Severity Reaction Status Date / Time spironolactone AdvReac Intermediate hyperkalemi Verified 11/10/20 11:28 a Review of Systems ROS ROS Narrative: Narrative: All systems ED: reviewed and negative except as stated. PFSH Narrative Patient History Narrative: Narrative: Medical/Surgical/Family History All Active Problems (Updated 11/10/20 @ 16:51 by Ac Gu PA-C) Acute CVA (cerebrovascular accident) (Acute) Unwitnessed fall (Acute) Hx of gout (Acute) Dementia (Acute) Insomnia (Acute) Chronic kidney disease (CKD) stage G3a/A2, moderately decreased glomerular filtration rate (GFR) between 45-59 mL/min/1.73 square meter and albuminuria creatinine ratio between 30-299 mg/g (Chronic) Gout (Acute) Gastric bypass status for obesity (Chronic) On potassium wasting diuretic therapy (Acute) Anemia (Acute) CKD stage 4 secondary to hypertension (Acute) Hyperkalemia (Acute) Sinus tachycardia (Acute) Hypertensive urgency (Acute) Headache (Acute) Renal insufficiency syndrome (Acute) CKD (chronic kidney disease), stage IV (Acute) Macular degeneration (Chronic) Diabetic eye exam (Chronic ~05/26/18) Comprehensive diabetic foot examination, type 2 DM, encounter for (Chronic ~09/08/18) Gout (Chronic) Arthritis (Chronic) Poor sleep (Chronic) Depression (Chronic) Depression screening (Chronic ~04/30/18) BMI 36.0-36.9,adult (Chronic) Trochanteric bursitis, right hip (Chronic) Borderline type 2 diabetes mellitus (Chronic) Stroke (Chronic ~2011) UTI (urinary tract infection) (Chronic) Essential tremor (Chronic) HTN (hypertension) (Chronic ~2009) Fatigue (Chronic) B12 deficiency anemia (Chronic) Chronic kidney disease, stage 3 (moderate) (Chronic) Hyperlipidemia (Chronic) Chronic right hip pain (Chronic) Dehydration (Chronic) Iron deficiency anemia (Chronic) Acute pain of right knee (Chronic) Osteoarthritis of right knee (Chronic) 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 Villeda - No Retinopathy Essential tremor Fatigue Gout HTN (hypertension) (~2009) Hx of gout Hyperlipidemia 11/30/2019 Cholesterol 158 Triglycerides 156 03/08/2020 Cholesterol 154 Triglycerides 164 LDL 88 HLD 33 Insomnia Iron deficiency anemia Previous Hgb 11.5 11/30/2019 11.6 03/08/20 Hgb 12.1 Ferritin stable Macular degeneration Osteoarthritis of right knee Poor sleep Stroke (~2011) Trochanteric bursitis, right hip Type 2 diabetes mellitus with peripheral neuropathy A1C 7.1% (08/24/2019) on Oral medications 11/30/2019 A1C 6.4% [employer] recommends stopping metformin 03/08/2020 A1C 6.6% on no treatment. UTI (urinary tract infection) Vascular disease of abdomen intervention in [place]. Surgical History H/O spinal fusion is her 50s History of cataract extraction History of cholecystectomy Family History Unknown Cancer Stroke Mother Ovarian cancer Father Vascular disorder Son Vascular disorder Diabetes Social History Smoking Status: Unknown if ever smoked Exam Narrative Narrative: Narrative: General Limitations: no limitations General appearance: Present other (Well-developed, well-nourished, obese 85-year-old female patient laying semirecumbent on the emergency room gurney appears fatigued but in no acute respiratory distress. She is afebrile with normal vital signs.) Head Head: Present atraumatic and normocephalic Eye Eye: Present PERRL and EOMI ENT ENT: Present normal oropharynx and mucous membranes dry Neck Neck: Present normal inspection and trachea midline; Absent tenderness and lymphadenopathy Chest Chest: Present symmetric chest wall rise; Absent tenderness Respiratory Respiratory: Present normal lung sounds bilaterally; Absent respiratory distress, wheezes, stridor, accessory muscle use and prolonged expiratory phase Cardiovascular Cardiovascular: Present regular rate and irregular rhythm (Slightly regular rhythm heard/palpated.); Absent systolic murmur and diastolic murmur Adbominal Abdominal: Present soft; Absent distention, tenderness, guarding, rebound, rigidity, organomegaly and mass Extremities Extremities: Present normal inspection, full ROM and normal capillary refill; Absent pedal edema Back Back: Present normal inspection and L-S tenderness; Absent spinous process tenderness, straight leg raise (R) and straight leg raise (L) Expanded Neurological Patient oriented to: Present person, place and time Speech: Present fluid speech CRANIAL NERVES: EOM function (II, III, IV, ): Normal, facial sensation (V): Normal, facial palsy (VII): Normal, gag reflex (IX): Normal, spinal accessory function (XI): Normal and tongue deviation (XII): Normal CEREBELLAR FUNCTION: finger to nose: Normal and heel to solis: Normal Motor strength - LUE: 5/5 Motor strength - RUE: 5/5 Motor strength - LLE: 5/5 Motor strength - RLE: 5/5 UPPER MOTOR NEURON EXAM: pronator drift: Normal SENSORY EXAM UPPER EXTREMITY: Normal: light touch SENSORY EXAM LOWER EXTREMITY: Normal: light touch DTR: 2+: biceps (L), biceps (R), patellar (L) and patellar (R) Coma Scale Eye Opening: Spontaneous Coma Scale Motor Response: Obeys Commands Coma Scale Verbal Response: Oriented Coma Scale Total: 15 Psychiatric Psychiatric: Present normal affect and normal mood Skin Skin: Present warm (WNL), dry and pallor Course Course Course Narrative: Patient does have known history of dementia but is answering my questions appropriately today. She did receive her second dose of Covid vaccine last night but I am unsure if this is related to this versus something else. She tells me she became dizzy and lowered herself to the ground last night. Unfortunately she mentions laying on the ground all last night and into this morning when her daughter found her on the floor. This puts her at risk of rhabdomyolysis. We are going to get some screening laboratory studies including a total CK. Because this is an unwitnessed fall at home the patient is complaining of both headache as well as lumbar spine pain I am going to get multiple images including CT scan without contrast of her head and neck. We will then get contrast-enhanced CT scans of chest, abdomen, and pelvis. Patient does not require any aggressive analgesia at this time. She was given aceta minophen understanding 5 mg p.o. to help with her pain. Were also going to give her normal saline 1000 mL a bolus. Reevaluation(s) Reevaluation #1: I reviewed the patient's diagnostics of the following: CBC within normal limits. Lactic acid 2.4. CMP BUN 25, creatinine 1.2, glucose 218, alkaline phosphatase 157, all others normal limits. Total CK 134. UA pending. Head CT scan without contrast read by the radiologist as late acute infarct in the left medullary and left cerebral vermis. There was a large remote cortical-based infarct in the medial left temporal and the entire left occipital lobe that was already been visualized. No acute intracerebral hemorrhage. Radiologist recommended brain MRI or CT cerebral/cervical carotid arteriograms. CT of the cervical spine showing multilevel degeneration but no fracture. There was heavy calcific plaque in the carotid bifurcation. Again radiologist recommends CT cervical carotid arteriogram. Contrast-enhanced CT scan of the chest/abdomen/pelvis read as no acute posttraumatic change. There was mention of moderate CHF. Radiologist does mention very heavy calcific plaque in the left subclavian artery origin. He mentions this is likely stenosis in this region which may predispose the patient to posterior circulation cerebral infarctions. After reviewing the data I discussed these findings briefly with my collaborating physician (Dr. Olea) who then re commended ordering additional studies based on the recommendations of the radiologist. I discussed the case briefly with our radiologist (Dr. Reid) at this time it was decided to do an MRA of the patient's head and neck. I discussed these additional studies with the patient verbalized under standing. The MRA of the patient's head and neck is ordered as recommended. Time: 14:54 Reevaluation #2: The radiologist contacted me with a verbal read of the MRI/MRA of the patient's brain/neck. He mentions that the patient suffered an acute in infarction of the left inferior cerebellar vermis. 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 He did mention a thrombus formation but did not give a size. He also mentioned that both the distal internal and external carotid arteries were occluded with the external carotid artery being occluded greater than 50%. Knowing this I discussed the case briefly with my collaborating physician who then recommended we reach out to the stroke neurologist. I was able to speak to neurologist (Dr. More). We discussed the case at length. At this time the stroke neurologist did mention that the posterior inferior carotid artery occlusion is much too small to do any form of intervention. He did ask specifically about the basilar artery and I was told that this was not reported to me via the radiologist. He said as long as basal artery involved that the patient should undergo normal embolic stroke work-up including echocardiogram, hemoglobin A1c, and a lipid panel. He did recommend starting the patient on antiplatelet therapy (aspirin/Plavix). I spoke to my collaborating physician once again who then recommended the patient be admitted. With this in mind I reached out to our hospitalist (Dr. Garcia) to discuss the case with him. Time: 16:13 Reevaluation #3: At this time the hospitalist says he is happy to admit the patient here to our facility for ongoing stroke evaluation and work-up. He did request the patient be given a dose of aspirin as well as Plavix. I clarify with the patient whether or not she has been taking her daily medications as di rected and she does say yes. She has not had any of her daily medications today however. With this in mind patient was given 3 and 24 mg of aspirin and 75 mg of Plavix p.o. All further treatment decisions, modalities, and disposition will be carried out by the hospitalist. Time: 16:47 Vital Signs Vital signs: Vital Signs Temperature 98.3 F 11/10/20 11:13 Pulse Rate 85 11/10/20 11:13 Respiratory Rate 15 11/10/20 11:13 Blood Pressure 149/73 11/10/20 11:13 Pulse Oximetry (%) 94 11/10/20 11:13 Temperature 98.3 F 11/10/20 18:00 Pulse Rate 76 11/10/20 18:00 Respiratory Rate 12 11/10/20 18:00 Blood Pressure 164/72 11/10/20 18:00 Pulse Oximetry (%) 94 11/10/20 18:00 MDM MDM Narrative Medical decision making narrative: Narrative: Lab Data Result diagrams: 11/10/20 12:20 11/10/20 12:20 Labs: Lab Results 11/10/20 11/10/20 11/10/20 Range/Units 12:20 12:20 12:20 WBC 10.0 (4.5-11.0) K/mcL RBC 5.20 (4.00-5.20) M/mcL Hgb 13.0 (12.0-15.0) g/dL Hct 41.5 (36.0-48.0) % MCV 79.8 L (80.0-100.0) fL MCH 25.0 L (26.0-34.0) pg MCHC 31.3 (31.0-36.0) g/dL RDW 17.0 H (11.5-14.5) % Plt Count 227 (140-440) K/mcL MPV 10.8 H (7.4-10.4) fL Neut % (Auto) 86.8 H (38.0-78.0) % Lymph % (Auto) 9.0 L (15.0-49.0) % [place] % (Auto) 4.0 (1.0-12.0) % Eos % (Auto) 0 (0.0-7.0) % Baso % (Auto) 0.2 (0.0-2.0) % Lymph # (Auto) 0.90 L (1.50-4.80) K/mcL [place] # (Auto) 0.40 (0.10-0.90) K/mcL Eos # (Auto) 0 (0.00-0.70) K/mcL Baso # (Auto) 0.02 (0.00-0.20) K/mcL Absolute Neutrophils 8.65 H (1.80-8.00) K/mcL VBG Lactic Acid 2.4 H (0.5-2.0) mmol/L Sodium 136 (133-145) mmol/L Potassium 4.0 (3.3-5.1) mmol/L Chloride 98 (96-108) mmol/L Carbon Dioxide 26 (22-30) mmol/L Anion Gap 12.0 (8.0-16.0) BUN 25 H (8-23) mg/dL Creatinine 1.2 H (0.6-1.1) mg/dL POC Creatinine (0.6-1.2) mg/dL GFR Calculation 41 Glucose 218 H (70-105) mg/dL Calcium 9.1 (8.6-10.4) mg/dL Total Bilirubin 0.3 (0.1-1.0) mg/dL AST 15 (<32) U/L ALT 14 (<40) U/L Alkaline Phosphatase 157 H (39-117) U/L Total Creatine Kinase (24-170) U/L Total Protein 6.8 (5.9-8.4) gm/dL Albumin 3.7 (3.2-5.2) gm/dL Globulin 3.1 (2.2-3.7) gm/dL Albumin/Globulin Ratio 1.2 (1.0-2.3) Urine Color Urine Appearance (Clear) Urine pH (5.0-9.0) Ur Specific Jeannette (1.000-1.035) Urine Protein (Negative) mg/dL Urine Glucose (UA) (Negative) mg/dL Urine Ketones (Negative) mg/dL Urine Occult Blood (Negative) mg/dL Urine Nitrate (Negative) Urine Bilirubin (Negative) mg/dL Urine Urobilinogen mg/dL Ur Leukocyte Esterase (Negative) /ug Urine RBC (0-3) /hpf Urine WBC (0-4) /hpf Ur Squamous Epith Cells (0-4) /hpf Urine Bacteria (0) /hpf Urine Mucus (None) /hpf Ur Culture Indicated? 11/10/20 11/10/20 Range/Units 12:20 13:35 WBC (4.5-11.0) K/mcL RBC (4.00-5.20) M/mcL Hgb (12.0-15.0) g/dL Hct (36.0-48.0) % MCV (80.0-100.0) fL MCH (26.0-34.0) pg MCHC (31.0-36.0) g/dL RDW (11.5-14.5) % Plt Count (140-440) K/mcL MPV (7.4-10.4) fL Neut % (Auto) (38.0-78.0) % Lymph % (Auto) (15.0-49.0) % [place] % (Auto) (1.0-12.0) % Eos % (Auto) (0.0-7.0) % Baso % (Auto) (0.0-2.0) % Lymph # (Auto) (1.50-4.80) K/mcL [place] # (Auto) (0.10-0.90) K/mcL Eos # (Auto) (0.00-0.70) K/mcL Baso # (Auto) (0.00-0.20) K/mcL Absolute Neutrophils (1.80-8.00) K/mcL VBG Lactic Acid (0.5-2.0) mmol/L Sodium (133-145) mmol/L Potassium (3.3-5.1) mmol/L Chloride (96-108) mmol/L Carbon Dioxide (22-30) mmol/L Anion Gap (8.0-16.0) BUN (8-23) mg/dL Creatinine (0.6-1.1) mg/dL POC Creatinine 1.1 (0.6-1.2) mg/dL GFR Calculation Glucose (70-105) mg/dL Calcium (8.6-10.4) mg/dL Total Bilirubin (0.1-1.0) mg/dL AST (<32) U/L ALT (<40) U/L Alkaline Phosphatase (39-117) U/L Total Creatine Kinase 134 (24-170) U/L Total Protein (5.9-8.4) gm/dL Albumin (3.2-5.2) gm/dL Globulin (2.2-3.7) gm/dL Albumin/Globulin Ratio (1.0-2.3) Urine Color Yellow Urine Appearance Clear (Clear) Urine pH 7.0 (5.0-9.0) Ur Specific [place]annette 1.014 (1.000-1.035) Urine Protein >=500 A (Negative) mg/dL Urine Glucose (UA) >=500 A (Negative) mg/dL Urine Ketones Negative (Negative) mg/dL Urine Occult Blood 0.03 (Negative) mg/dL Urine Nitrate Negative (Negative) Urine Bilirubin Negative (Negative) mg/dL Urine Urobilinogen Negative mg/dL Ur Leukocyte Esterase Negative (Negative) /ug Urine RBC 9 H (0-3) /hpf Urine WBC 3 (0-4) /hpf Ur Squamous Epith Cells 0 (0-4) /hpf Urine Bacteria None (0) /hpf Urine Mucus Few A (None) /hpf Ur Culture Indicated? No ED POC Tests ED POC Tests: EULALIO - SARS Antigen Negative Radiology Data Radiology results reviewed: Yes I reviewed the patient's radiology results. Radiology results narrative: Ordering Physician: Ac Gu PA-C Date of Service: 11/10/20 Procedure(s): CT head/brain wo con Accession Number(s): [id number] CLINICAL INFORMATION: Found unconscious COMPARISON: Head CT 10/12/2019 TECHNIQUE: 2.5 mm helical slices were obtained in the skull base to vertex. Following reconstruction, axial reformatted images were reviewed at bone and parenchymal windows. The exam was performed using radiation dose optimization techniques including, but not limited to, automated exposure control, adjustment of the mA and/or kV according to patient size and use of iterative reconstruction technique. FINDINGS: The ventricles, sulci, fissures, and cisterns are enlarged compatible with mild age-related atrophy. No extra-axial fluid collections are identified. A large remote cortical-based infarct in the medial left temporal and the entire left occipital lobe seen - as before. On today's examination, there is a late acute infarct of the left medulla and left cerebellar vermis - new from prior CT. There is no evidence of hemorrhage, mass effect, or edema. Bone windows show no osseous abnormality. IMPRESSION: 1. Late acute infarct in the left medulla and left cerebellar vermis. This would be in the left PICA and superior cerebellar arterial distributions. 2. Large remote cortical-based infarct in the medial left temporal and the entire left occipital lobe seen as before. 3. No intracerebral hemorrhage. Consider confirmation with brain MRI and CT cerebral and cervical carotid arteriogram Ordering Physician: Ac Gu PA-C Date of Service: 11/10/20 Procedure(s): CT cervical spine wo con Accession Number(s): [id number] CLINICAL INFORMATION: Trauma COMPARISON: None. TECHNIQUE: 0.625 mm helical slices were obtained from the skull base through the superior T2 end plate, and following reconstruction, 2.5 mm sagittal, coronal and axial reformations were then processed. The exam was reviewed at bone and soft tissue windows. The exam was performed using radiation dose optimization techniques including, but not limited to, automated exposure control, adjustment of the mA and/or kV according to patient size and use of iterative reconstruction technique. FINDINGS: Sagittal reformatted images show 1 mm of C4 and 3 mm C5 anterior subluxation due to degenerative facet disease. No posttraumatic subluxation. No fracture appreciated. The left C2-3 facets are fused. The cervical cord is normal in contour and caliber without hemorrhage or other abnormality. Soft tissues are significant for heavy calcific plaque in the carotid bifurcations. The C2-3 disc level is normal. At C3-4, mild broad disc spur complex and facet arthropathy result in mild central canal and moderate left IV foraminal narrowing impinging exiting left C4 nerve root At C4-5, mild broad disc protrusion with left-sided asymmetry results in mild central canal and left IV foraminal narrowing. Facet arthropathy noted At C5-6, moderate broad calcified disc spur complex results in moderate central canal, right IV foraminal and mild left IV foraminal narrowing At C6-7, moderate broad disc spur complex and facet arthropathy result in moderate central canal and bilateral lateral recess narrowing C7-T1 disc level is normal IMPRESSION: 1. No fracture or post rheumatic change. 2. Multilevel degeneration as described. 3. Heavy calcific plaque in the carotid bifurcation. Suggest CT cervical carotid arteriogram Ordering Physician: Ac Gu PA-C Date of Service: 11/10/20 Procedure(s): CT chest abdomen pelvis w con Accession Number(s): [id number] CLINICAL INFORMATION: Trauma COMPARISON: Chest CT 10/12/2019. TECHNIQUE: Enteric contrast was utilized. 80 cc of Isovue-[id number] were injected intravenously, and 50 seconds later 2.5 mm helical slices were obtained from the lung apices through the subtrochanteric regions of the femurs. Following reconstruction, 2.5 mm sagittal, coronal and axial reformatted images were processed and reviewed at multiple windows and levels. 7 mm MIP reconstructions were obtained through the lungs to optimize nodule detection.The exam was performed using radiation dose optimization techniques including, but not limited to, automated exposure control, adjustment of the mA and/or kV according to patient size and use of iterative reconstruction technique. FINDINGS: Pulmonary parenchymal windows show mild chronic bronchitis with moderate patchy airspace disease throughout the lower lobes, right middle lobe and inferior upper lobes. This is new from the CT one year prior. The pulmonary vasculature is moderately congested and there are small bilateral pleural effusions. Findings compatible with moderate CHF. A 5 mm nodule in the anterior basilar segment left lower lobe, on MIP image 60, is unchanged. Moderate cardiomegaly with small pericardial effusion has increased. Heavy calcification mitral annulus valve and aortic valve calcification noted. There is also calcific plaque in the coronary arteries. Thoracic aorta is normal diameter with moderately heavy fibrofatty and calcific plaque. There is no adenopathy in the mediastinal hilar or axillary regions. Small hiatal hernia appreciated. Esophagus is, otherwise, normal. Asymmetric enlargement of the left thyroid lobe with multiple nodules unchanged from the CT one year prior. Abdominal images show minimal fatty change within the liver. The gallbladder is surgically absent. Intrahepatic, common hepatic and common bile duct are mildly dilated compatible post cholecystectomy state. Common bile duct is 9 mm. The pancreas, both adrenal glands, spleen are normal. Scattered simple cysts both kidneys and scattered scarring throughout both kidneys is stable. 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 Aorta biiliac surgical graft is unremarkable Pelvic images show hysterectomy and oophorectomy changes urinary bladder is mildly distended. Large amount stool seen within the colon. The colon, appendix region small bowel and stomach are, otherwise, normal is no free air, free fluid no adenopathy. 10 mm calcified nodule deep Camper's fascia within the epigastric region seen - as before. Bone windows show posterior fusion changes at L2-S1. No fracture. IMPRESSION: 1. No acute posttraumatic change. 2. Moderate CHF. Moderate patchy bilateral airspace disease in both lower right middle and upper lobes is likely edema but superimposed aspiration is not excluded. 3. Very heavy calcific plaque in the left subclavian artery origin. There is likely stenosis in this region which may predispose to posterior circulation cerebral infarctions the patient has incurred. 4. Multinodular adenomatous thyroid goiter stable since exam one year prior 5. Scattered renal scarring and cysts stable Interpreted and Authenticated by: Hadley Reid 11/10/20 MRI/MRI of the patient's brain and neck were read by the radiologist and a preliminary verbal read was given. Patient does have known acute infarction of the left inferior cerebellar vermis. This correlates with the posterior inferior carotid artery which is occluded. Radiologist also mentioned occlusion to both the internal and external carotid arteries with the external carotid artery being greater than 50%. There was no mention of the basilar artery being affected. Discharge Plan Patient/Caregiver Discharge Instructions Pt seen by GEODETIC SURVEY DIRECTOR/PA only: Yes Clinical Impression: Acute CVA (cerebrovascular accident), Unwitnessed fall, CKD (chronic kidney disease), stage IV HTN (hypertension) Qualifiers: Hypertension type: essential hypertension Qualified Code(s): I10 - Essential (primary) hypertension Headache Qualifiers: Headache type: unspecified Headache chronicity pattern: acute headache Intractability: not intractable Qualified Code(s): R51.9 - Headache, unspecified Patient Disposition: Xfer As Inpt (TS) Condition: Fair Discharge Date/Time: 11/10/20 18:12
[2020-11-10 13:12] LABS: Basophils # (Auto) 0.02 K/mcL (0.00-0.20); Basophils % (Auto) 0.2 % (0.0-2.0); Eosinophils # (Auto) 0 K/mcL (0.00-0.70); Eosinophils % (Auto) 0 % (0.0-7.0); Hematocrit 41.5 % (36.0-48.0); Mean Cell Volume 79.8 fL (80.0-100.0); Mean Corpuscular HGB Conc 31.3 g/dL (31.0-36.0); Mean Platelet Volume 10.8 fL (7.4-10.4); Neutrophils % (Auto) 86.8 % (38.0-78.0); Platelet Count 227 K/mcL (140-440)
[2020-11-10 13:17] LABS: POC Creatinine 1.1 mg/dL (0.6-1.2)
--- NOTE | 2020-11-10 13:45 | Cat Scan Report ---
CLINICAL INFORMATION: Found unconscious COMPARISON: Head CT 10/12/2019 TECHNIQUE: 2.5 mm helical slices were obtained in the skull base to vertex. Following reconstruction, axial reformatted images were reviewed at bone and parenchymal windows. The exam was performed using radiation dose optimization techniques including, but not limited to, automated exposure control, adjustment of the mA and/or kV according to patient size and use of iterative reconstruction technique. FINDINGS: The ventricles, sulci, fissures, and cisterns are enlarged compatible with mild age-related atrophy. No extra-axial fluid collections are identified. A large remote cortical-based infarct in the medial left temporal and the entire left occipital lobe seen - as before. On today's examination, there is a late acute infarct of the left medulla and left cerebellar vermis - new from prior CT. There is no evidence of hemorrhage, mass effect, or edema. Bone windows show no osseous abnormality. IMPRESSION: 1. Late acute infarct in the left medulla and left cerebellar vermis. This would be in the left PICA and superior cerebellar arterial distributions. 2. Large remote cortical-based infarct in the medial left temporal and the entire left occipital lobe seen as before. 3. No intracerebral hemorrhage. Consider confirmation with brain MRI and CT cerebral and cervical carotid arteriogram Interpreted and Authenticated by: Hadley Reid 11/10/20
[2020-11-10 14:03] LABS: ALT/SGPT 14 U/L (<40); AST/SGOT 15 U/L (<32); Albumin 3.7 gm/dL (3.2-5.2); Albumin/Globulin Ratio 1.2 (1.0-2.3); Alkaline Phosphatase 157 U/L (39-117); Bilirubin,Total 0.3 mg/dL (0.1-1.0); Blood Urea Nitrogen 25 mg/dL (8-23); Calcium 9.1 mg/dL (8.6-10.4); Carbon Dioxide 26 mmol/L (22-30); Chloride 98 mmol/L (96-108); Globulin 3.1 gm/dL (2.2-3.7); Glomerular Filtration Rate 41; Glucose 218 mg/dL (70-105)
--- NOTE | 2020-11-10 14:09 | Cat Scan Report ---
CLINICAL INFORMATION: Trauma COMPARISON: Chest CT 10/12/2019. TECHNIQUE: Enteric contrast was utilized. 80 cc of Isovue-370 were injected intravenously, and 50 seconds later 2.5 mm helical slices were obtained from the lung apices through the subtrochanteric regions of the femurs. Following reconstruction, 2.5 mm sagittal, coronal and axial reformatted images were processed and reviewed at multiple windows and levels. 7 mm MIP reconstructions were obtained through the lungs to optimize nodule detection.The exam was performed using radiation dose optimization techniques including, but not limited to, automated exposure control, adjustment of the mA and/or kV according to patient size and use of iterative reconstruction technique. FINDINGS: Pulmonary parenchymal windows show mild chronic bronchitis with moderate patchy airspace disease throughout the lower lobes, right middle lobe and inferior upper lobes. This is new from the CT one year prior. The pulmonary vasculature is moderately congested and there are small bilateral pleural effusions. Findings compatible with moderate CHF. A 5 mm nodule in the anterior basilar segment left lower lobe, on MIP image 60, is unchanged. Moderate cardiomegaly with small pericardial effusion has increased. Heavy calcification mitral annulus valve and aortic valve calcification noted. There is also calcific plaque in the coronary arteries. Thoracic aorta is normal diameter with moderately heavy fibrofatty and calcific plaque. There is no adenopathy in the mediastinal hilar or axillary regions. Small hiatal hernia appreciated. Esophagus is, otherwise, normal. Asymmetric enlargement of the left thyroid lobe with multiple nodules unchanged from the CT one year prior. Abdominal images show minimal fatty change within the liver. The gallbladder is surgically absent. Intrahepatic, common hepatic and common bile duct are mildly dilated compatible post cholecystectomy state. Common bile duct is 9 mm. The pancreas, both adrenal glands, spleen are normal. Scattered simple cysts both kidneys and scattered scarring throughout both kidneys is stable. 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 Aorta biiliac surgical graft is unremarkable Pelvic images show hysterectomy and oophorectomy changes urinary bladder is mildly distended. Large amount stool seen within the colon. The colon, appendix region small bowel and stomach are, otherwise, normal is no free air, free fluid no adenopathy. 10 mm calcified nodule deep Camper's fascia within the epigastric region seen - as before. Bone windows show posterior fusion changes at L2-S1. No fracture. IMPRESSION: 1. No acute posttraumatic change. 2. Moderate CHF. Moderate patchy bilateral airspace disease in both lower right middle and upper lobes is likely edema but superimposed aspiration is not excluded. 3. Very heavy calcific plaque in the left subclavian artery origin. There is likely stenosis in this region which may predispose to posterior circulation cerebral infarctions the patient has incurred. 4. Multinodular adenomatous thyroid goiter stable since exam one year prior 5. Scattered renal scarring and cysts stable Interpreted and Authenticated by: Hadley Reid 11/10/20
--- NOTE | 2020-11-10 14:13 | Cat Scan Report ---
CLINICAL INFORMATION: Trauma COMPARISON: None. TECHNIQUE: 0.625 mm helical slices were obtained from the skull base through the superior T2 end plate, and following reconstruction, 2.5 mm sagittal, coronal and axial reformations were then processed. The exam was reviewed at bone and soft tissue windows. The exam was performed using radiation dose optimization techniques including, but not limited to, automated exposure control, adjustment of the mA and/or kV according to patient size and use of iterative reconstruction technique. FINDINGS: Sagittal reformatted images show 1 mm of C4 and 3 mm C5 anterior subluxation due to degenerative facet disease. No posttraumatic subluxation. No fracture appreciated. The left C2-3 facets are fused. The cervical cord is normal in contour and caliber without hemorrhage or other abnormality. Soft tissues are significant for heavy calcific plaque in the carotid bifurcations. The C2-3 disc level is normal. At C3-4, mild broad disc spur complex and facet arthropathy result in mild central canal and moderate left IV foraminal narrowing impinging exiting left C4 nerve root At C4-5, mild broad disc protrusion with left-sided asymmetry results in mild central canal and left IV foraminal narrowing. Facet arthropathy noted At C5-6, moderate broad calcified disc spur complex results in moderate central canal, right IV foraminal and mild left IV foraminal narrowing At C6-7, moderate broad disc spur complex and facet arthropathy result in moderate central canal and bilateral lateral recess narrowing C7-T1 disc level is normal IMPRESSION: 1. No fracture or post rheumatic change. 2. Multilevel degeneration as described. 3. Heavy calcific plaque in the carotid bifurcation. Suggest CT cervical carotid arteriogram Interpreted and Authenticated by: Hadley Reid 11/10/20
[2020-11-10 15:01] LABS: Appearance,Urine CLEAR (Clear); Bilirubin,Urine Negative (Negative); Color,Urine YELLOW; Culture Indicated,Urine No; Glucose,Urine (UA) >=500 mg/dL (Negative); Ketones,Urine Negative (Negative); Leukocyte Esterase,Urine Negative /ug (Negative); Mucus,Urine FEW /hpf; Nitrate,Urine Negative (Negative); Protein,Urine >=500 mg/dL (Negative); Specific Gravity,Urine 1.014 (1.000-1.035); Urine Blood 0.03 mg/dL (Negative); Urine RBC 9 /hpf (0-3); Urine Squamous Epithelial Cell 0 /hpf (0-4); Urine WBC 3 /hpf (0-4); Urobilinogen,Urine Negative
[2020-11-10] MEDS ORDERED: CLOPIDOGREL 75 MG TABLET PO ONE (16:28)
[2020-11-10] MEDS ORDERED: ASPIRIN 81 MG TAB.CHEW CHEWED ONE (16:28)
--- NOTE | 2020-11-10 17:05 | Internal Med History&Physical ---
HPI History of Present Illness Patient information: Note initiated : 11/10/20 at 4:46 pm Service Date, if different from initiated Date: [] Patient: Xiomara Carty a 85 y/o F admitted on for Found on floor by family member, n/v/d. Chief Complaint: [] History of present illness: Ms. Carty is a 85 year old F Female who says she woke up yesterday feeling fine. She had her second Covid shot and went home and was doing all right. She had a little bit of something to eat. Sometime later she was in her kitchen but before 9 when she was considering going to bed and she says she turned around and became dizzy and unsteady and sat down on a stool in her kitchen and then down on the floor. She was too weak to get up and so she laid in there overnight. Work-up in the ER included a stroke work-up which did show a acute left cerebellar vermis infarct. Verbal report to the ER provider mentioned patient was sent carotids stenosis in the external it sounds like. She did have some stenosis in the PICA. Case discussed with stroke neurologist to said no intervention other than medical and to treat with aspirin and Plavix and statin work-up of echo as well as lipid. She was found of elevated blood pressure in the ER as well. Labs were unrema rkable. Creatinine stable. She denies any history of heart failure says she was on oxygen for years ago when she had a stroke but has not been on it a while. She is on Sinemet but denies having Parkinson's. She does not know if she is on Plavix although is listed on an old list. Patient is quite poor historian. Sound like she has some dementia per discussion with ER provider. CT chest mentioned chf but clinically not apparent at this time. Review of Systems: Pertinent positives as above plus headache . denies headache/fever/chills/nausea/vomiting/chest or abdominal pain/cough/dyspnea/d iarrhea. Many 10 point review of system reviewed negative. PFSH PFSH All Active Problems (Updated 11/10/20 @ 16:51 by Ac Gu PA-C) Acute CVA (cerebrovascular accident) (Acute) Unwitnessed fall (Acute) Hx of gout (Acute) Dementia (Acute) Insomnia (Acute) Chronic kidney disease (CKD) stage G3a/A2, moderately decreased glomerular filtration rate (GFR) between 45-59 mL/min/1.73 square meter and albuminuria creatinine ratio between 30-299 mg/g (Chronic) Gout (Acute) Gastric bypass status for obesity (Chronic) On potassium wasting diuretic therapy (Acute) Anemia (Acute) CKD stage 4 secondary to hypertension (Acute) Hyperkalemia (Acute) Sinus tachycardia (Acute) Hypertensive urgency (Acute) Headache (Acute) Renal insufficiency syndrome (Acute) CKD (chronic kidney disease), stage IV (Acute) Macular degeneration (Chronic) Diabetic eye exam (Chronic ~05/26/18) Comprehensive diabetic foot examination, type 2 DM, encounter for (Chronic ~09/08/18) Gout (Chronic) Arthritis (Chronic) Poor sleep (Chronic) Depression (Chronic) Depression screening (Chronic ~04/30/18) BMI 36.0-36.9,adult (Chronic) Trochanteric bursitis, right hip (Chronic) Borderline type 2 diabetes mellitus (Chronic) Stroke (Chronic ~2011) UTI (urinary tract infection) (Chronic) Essential tremor (Chronic) HTN (hypertension) (Chronic ~2009) Fatigue (Chronic) B12 deficiency anemia (Chronic) Chronic kidney disease, stage 3 (moderate) (Chronic) Hyperlipidemia (Chronic) Chronic right hip pain (Chronic) Dehydration (Chronic) Iron deficiency anemia (Chronic) Acute pain of right knee (Chronic) Osteoarthritis of right knee (Chronic) 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 Villeda - No Retinopathy Essential tremor Fatigue Gout HTN (hypertension) (~2009) Hx of gout Hyperlipidemia 11/30/2019 Cholesterol 158 Triglycerides 156 03/08/2020 Cholesterol 154 Triglycerides 164 LDL 88 HLD 33 Insomnia Iron deficiency anemia Previous Hgb 11.5 11/30/2019 11.6 03/08/20 Hgb 12.1 Ferritin stable Macular degeneration Osteoarthritis of right knee Poor sleep Stroke (~2011) Trochanteric bursitis, right hip Type 2 diabetes mellitus with peripheral neuropathy A1C 7.1% (08/24/2019) on Oral medications 11/30/2019 A1C 6.4% Qc Analyst recommends stopping metformin 03/08/2020 A1C 6.6% on no treatment. UTI (urinary tract infection) Vascular disease of abdomen intervention in [place]. Surgical History H/O spinal fusion is her 50s History of cataract extraction History of cholecystectomy Family History Unknown Cancer Stroke Mother Ovarian cancer Father Vascular disorder Son Vascular disorder Diabetes Social History (System 11/10/20 @ 11:29 by Holden Ma) caregiver/support person: Yes household members: alone housing: house lives independently: Yes occupational status: retired well-balanced diet: about half the time reads food labels: sometimes during the past year weight has: remained stable physical activity: none smoking status: Unknown if ever smoked MEDS/ALLERGIES Home Medications and Allergies Home Medications Medication Instructions Recorded Confirmed Type diaper,brief,adult,disposable #68 each 09/08/19 09/24/20 Rx famotidine 20 mg tablet 20 mg PO QDAY #30 tab 12/07/19 09/24/20 Rx duloxetine 60 mg capsule,delayed 60 mg PO .Noon #90 cap 01/11/20 09/24/20 Rx release carbidopa 25 mg-levodopa 100 mg See Rx Instructions .ROUTE 05/27/20 09/24/20 Rx tablet .COMPLEX #90 tab carvedilol 25 mg tablet 25 mg PO Q12H #60 tab 07/23/20 09/24/20 Rx ropinirole 1 mg tablet 1 mg PO BID #180 tab 07/23/20 09/24/20 Rx hydralazine 25 mg tablet 25 mg PO BID #60 tab 08/13/20 09/24/20 Rx atorvastatin 10 mg tablet See Rx Instructions .ROUTE 08/21/20 09/24/20 Rx .COMPLEX #90 unknown measurement unit code: tablet clopidogrel 75 mg tablet See Rx Instructions .ROUTE 08/21/20 09/24/20 Rx .COMPLEX #90 unknown measurement unit code: tablet losartan 100 mg tablet 100 mg PO QHS #90 tab 08/21/20 09/24/20 Rx gabapentin 300 mg capsule See Rx Instructions .ROUTE 09/21/20 09/24/20 Rx .COMPLEX #30 cap tramadol 50 mg tablet 50 mg PO Q6H PRN #120 tab 09/24/20 09/24/20 Rx trazodone 100 mg tablet 100 mg PO QHS #90 tab 09/24/20 09/24/20 Rx amlodipine 2.5 mg tablet See Rx Instructions .ROUTE 10/12/20 Rx .COMPLEX #90 tab furosemide 40 mg tablet 40 mg PO QAM #30 tab 10/22/20 Rx allopurinol 100 mg tablet See Rx Instructions .ROUTE 10/28/20 Rx .COMPLEX #180 tab glimepiride 4 mg tablet See Rx Instructions .ROUTE 11/08/20 Rx .COMPLEX #90 tablet Allergies Allergy/AdvReac Type Severity Reaction Status Date / Time spironolactone AdvReac Intermediate hyperkalemi Verified 11/10/20 11:28 a EXAM Constitutional Vitals: Temp Pulse Resp BP Pulse Ox 98.3 F 79 20 190/92 96 11/10/20 11:13 11/10/20 16:16 11/10/20 16:16 11/10/20 16:16 11/10/20 16:16 Exam: General: Alert, Awake, No acute Distress, obese Eyes/N/T: EOMI, dry MM Head/Neck: neck supple, normocephalic atraumatic CV: RRR, No murmurs, normal s1/s2 Pulm: Clear b/l, no wheezing/rhonchi/rales Abd: soft, nontender, +BS x4 Ext: no clubbing/cyanosis/edema Neuro: Alert, moves all extremities, CN 2-12 grossly intact, symmetrical strength b/l upper/lower, sensations intact b/l upper/lower. Dysmetria of the hands. Skin: warm/dry DATA Data Completed and Pending Labs: Labs from last 24 hours 11/10/20 11/10/20 11/10/20 13:35 12:20 12:20 WBC RBC Hgb Hct MCV MCH MCHC RDW Plt Count MPV Neut % (Auto) Lymph % (Auto) Kent % (Auto) Eos % (Auto) Baso % (Auto) Lymph # (Auto) Kent # (Auto) Eos # (Auto) Baso # (Auto) Absolute Neutrophils VBG Lactic Acid 2.4 H Sodium Potassium Chloride Carbon Dioxide Anion Gap BUN Creatinine POC Creatinine 1.1 GFR Calculation Glucose Glucose Fingerstick Pending Calcium Total Bilirubin AST ALT Alkaline Phosphatase Total Creatine Kinase 134 Total Protein Albumin Globulin Albumin/Globulin Ratio Urine Color Yellow Urine Appearance Clear Urine pH 7.0 Ur Specific Gentry 1.014 Urine Protein >=500 A Urine Glucose (UA) >=500 A Urine Ketones Negative Urine Occult Blood 0.03 Urine Nitrate Negative Urine Bilirubin Negative Urine Urobilinogen Negative Ur Leukocyte Esterase Negative Urine RBC 9 H Urine WBC 3 Ur Squamous Epith Cells 0 Urine Bacteria None Urine Mucus Few A Ur Culture Indicated? No 11/10/20 11/10/20 12:20 12:20 WBC 10.0 RBC 5.20 Hgb 13.0 Hct 41.5 MCV 79.8 L MCH 25.0 L MCHC 31.3 RDW 17.0 H Plt Count 227 MPV 10.8 H Neut % (Auto) 86.8 H Lymph % (Auto) 9.0 L Kent % (Auto) 4.0 Eos % (Auto) 0 Baso % (Auto) 0.2 Lymph # (Auto) 0.90 L Kent # (Auto) 0.40 Eos # (Auto) 0 Baso # (Auto) 0.02 Absolute Neutrophils 8.65 H VBG Lactic Acid Sodium 136 Potassium 4.0 Chloride 98 Carbon Dioxide 26 Anion Gap 12.0 BUN 25 H Creatinine 1.2 H POC Creatinine GFR Calculation 41 Glucose 218 H Glucose Fingerstick Calcium 9.1 Total Bilirubin 0.3 AST 15 ALT 14 Alkaline Phosphatase 157 H Total Creatine Kinase Total Protein 6.8 Albumin 3.7 Globulin 3.1 Albumin/Globulin Ratio 1.2 Urine Color Urine Appearance Urine pH Ur Specific Gentry Urine Protein Urine Glucose (UA) Urine Ketones Urine Occult Blood Urine Nitrate Urine Bilirubin Urine Urobilinogen Ur Leukocyte Esterase Urine RBC Urine WBC Ur Squamous Epith Cells Urine Bacteria Urine Mucus Ur Culture Indicated? A/P Narrative A/P Narrative: A: *Acute CVA (left cerebellar vermis - h/o CVA in past): -case discussed with stroke neurologist, recs to treat medically *HTN: acute on chronic 2/2 above *DM: *CKD III: *Dementia, mild: *Obesity: *GERD: *?Acute hypoxic resp failure: low sat initially in ED and placed on O2, when I saw in ED she had sats 98 so i removed while i visited with her and sats remained high -CT chest with some bibasilar infiltrates, she has no peripheral edema and actually appears dry, no cough P: -ASA/Plavix -statin/lipid panel -permissive HTN first 24-48 -Bedside swallow eval -Echo pending -neurochecks -clarify home meds -?home med sinemet -PT/OT -CM for placement needs -ppx: Lovenox DNR Time Spent With Patient Time: Total time spent is greater than 50% in coordination of care (as documented) at patient's floor/unit and/or counseling patient:
[2020-11-10] MEDS ORDERED: POTASSIUM CHLORIDE 40 MEQ in DEXTROSE 5% IN WATER 500 ML IV PRN (17:55)
[2020-11-10] MEDS ORDERED: MAGNESIUM SULFATE 2 GM/50 ML BAG IV PRN (17:55)
[2020-11-10] MEDS ORDERED: hydrALAZINE 20 MG/ML VIAL IV PRN (17:55)
[2020-11-10] MEDS ORDERED: POTASSIUM CHLORIDE 20 MEQ TABLET PO PRN ×2 (17:55)
[2020-11-10] MEDS ORDERED: DEXTROSE 31 GM ORAL.SUSP PO PRN (17:55)
[2020-11-10] MEDS ORDERED: LABETALOL 5 MG/ML ML IV PRN (17:55)
[2020-11-10] MEDS ORDERED: LACTULOSE 20 GM/30 ML ORAL.SOL PO PRN (17:55)
[2020-11-10] MEDS ORDERED: IPRATROPIUM/ALBUTEROL 3 ML AMPUL.NEB NEB PRN (17:55)
[2020-11-10] MEDS ORDERED: SENNOSIDES 1 TABLET PO PRN (17:55)
[2020-11-10] MEDS ORDERED: DEXTROSE 50% 50 ML VIAL IV PRN (17:55)
[2020-11-10] MEDS: ONDANSETRON 4 MG/2 ML VIAL IV PRN (18:34)
--- NOTE | 2020-11-10 19:13 | Cat Scan Report ---
CLINICAL INFORMATION: Code stroke COMPARISON: Brain MRI 10/21/2020 TECHNIQUE: 2.5 mm helical slices were obtained in the skull base to vertex. Following reconstruction, axial reformatted images were reviewed at bone and parenchymal windows. The exam was performed using radiation dose optimization techniques including, but not limited to, automated exposure control, adjustment of the mA and/or kV according to patient size and use of iterative reconstruction technique. FINDINGS: The ventricles, sulci, fissures, and cisterns are enlarged compatible with mild age-related atrophy. No extra-axial fluid collections are identified. A large remote cortical-based infarct in the medial left temporal and the entire left occipital lobe seen - as before. Remote lacunar infarct in the right caudate nucleus also noted. The acute infarct of the left cerebellar vermis is unchanged from CT and MRI performed earlier today There is no evidence of hemorrhage, mass effect, or edema. Bone windows show no osseous abnormality. IMPRESSION: 1. Late acute infarct in the left cerebellar vermis. Left PICA distribution No change 2. Large remote cortical-based infarct in the medial left temporal and the entire left occipital lobe seen as before. 3. No intracerebral hemorrhage. Interpreted and Authenticated by: Hadley Reid 11/10/20
--- NOTE | 2020-11-10 20:06 | Magnetic Resonance Report ---
CLINICAL INFORMATION: Acute infarct in the left PICA distribution on CT COMPARISON: Brain MRI 11/10/2020 TECHNIQUE: 3D [id number] SPGR was used to study the cerebral vasculature. FINDINGS: A small signal void is seen in the intracranial left vertebral artery extending the origin of the left PICA. The left plicae is not visualized. Findings compatible with thrombus in these regions. This artery with supply the region of restricted diffusion in the left cerebellar vermis. The right vertebral and basilar arteries are unremarkable. The intracranial internal carotid, anterior posterior and middle cerebral arteries show scattered mild to moderate stenoses ranging up to 50%. No additional regions of occlusion. IMPRESSION: 1. Signal void within the intracranial left vertebral artery extending into the left PICA artery compatible with thrombus. This artery supplied the region of acute infarct in the inferior left cerebellar vermis. 2. Scattered mild to moderate stenoses throughout the intracranial internal carotid, anterior middle and posterior cerebral arteries. No additional regions of thrombosis. Interpreted and Authenticated by: Hadley Reid 11/10/20
--- NOTE | 2020-11-10 20:13 | Magnetic Resonance Report ---
CLINICAL INFORMATION: Left cerebellar vermis infarct. COMPARISON: None. TECHNIQUE:2D and [id number] and 3D MOTSA [id number] images were obtained prior to gadolinium. Following gadolinium, coronal 3D [id number] images were acquired. FINDINGS: The thoracic aortic arch is normal in diameter with minimal thickening. Aortic branching is conventional. The cephalic and right subclavian artery are widely patent. A stenosis, greater than 50%, is seen in the left subclavian artery origin. Right common and internal carotid arteries are widely patent 50% stenosis right external carotid artery origin. 80% stenoses of the left internal and external carotid artery origins appreciated left common carotid artery is widely patent. A small signal void within the intracranial left vertebral artery represents thrombus which extends into the left PICA artery. The right vertebral artery is widely patent. IMPRESSION: 1. Signal void within the intracranial left vertebral artery likely represents thrombus which extends into the left PICA artery. This supplies the region of acute infarct in the left cerebellar vermis. 2. 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 Greater than 80% stenosis of the left internal and external carotid artery origins Interpreted and Authenticated by: Hadley Reid 11/10/20
--- NOTE | 2020-11-10 20:16 | Magnetic Resonance Report ---
CLINICAL INFORMATION: Late acute infarct seen on head CT COMPARISON: Head CT 11/10/2020 TECHNIQUE: Sagittal T1 FLAIR, axial T2 FLAIR propeller, diffusion ADC weighted images were acquired.. FINDINGS: The ventricles, sulci, fissures and cisterns are symmetrically enlarged compatible with mild age-related atrophy - no extra-axial fluid collections or mass appreciated. Large remote cortical-based infarct in the left temporal and the entire left occipital lobe seen - as before. Moderate region of restricted diffusion in the left inferior cerebellar vermis is compatible with acute infarct. No evidence of hemorrhage IMPRESSION: 1. Moderate acute infarct in the inferior left cerebellar vermis. No evidence of hemorrhage. 2. Large remote cortical-based infarct in the left temporal and the entire left occipital lobe. Interpreted and Authenticated by: Hadley Reid 11/10/20
[2020-11-10] MEDS: ATORVASTATIN 40 MG TABLET PO SCH (21:16)
[2020-11-10] MEDS: DOCUSATE SODIUM 100 MG CAPSULE PO SCH (21:16)
[2020-11-10] MEDS: INSULIN LISPRO 1 UNIT/0.01 ML UNIT SQ SCH (21:16)
[2020-11-10] MEDS: 0.9 % SODIUM CHLORIDE 10 ML SYRINGE IV SCH (21:16)
[2020-11-11] MEDS: ONDANSETRON 4 MG/2 ML VIAL IV PRN (01:47)
[2020-11-11] MEDS: ACETAMINOPHEN 325 MG TABLET PO PRN ×3 (01:47→20:39)
[2020-11-11] MEDS: 0.9 % SODIUM CHLORIDE 10 ML SYRINGE IV SCH ×3 (05:33→22:45)
[2020-11-11 07:06] LABS: HDL Cholesterol 44 mg/dL (>40); LDL Cholesterol,Calculated 98 mg/dL (<100); Non-HDL Cholesterol 128 mg/dL (<130); Triglycerides 153 mg/dL (<150)
[2020-11-11] MEDS ORDERED: GLIMEPIRIDE 2 MG TABLET PO SCH (07:30)
[2020-11-11 08:07] LABS: ALT/SGPT 14 U/L (<40); AST/SGOT 14 U/L (<32); Albumin 3.1 gm/dL (3.2-5.2); Alkaline Phosphatase 129 U/L (39-117); Bilirubin,Direct < 0.2 mg/dL (<0.3); Bilirubin,Total 0.3 mg/dL (0.1-1.0); Blood Urea Nitrogen 24 mg/dL (8-23); Carbon Dioxide 24 mmol/L (22-30); Chloride 99 mmol/L (96-108); Globulin 3.2 gm/dL (2.2-3.7); Glomerular Filtration Rate 41; Glucose 147 mg/dL (70-105); Lactate Dehydrogenase 222 U/L (135-225); Phosphorous 4.6 mg/dL (2.5-4.5); Triglycerides 154 mg/dL (<150); Uric Acid 6.4 mg/dL (2.5-8.0)
[2020-11-11] MEDS: PANTOPRAZOLE 40 MG TABLET PO SCH (08:16)
[2020-11-11] MEDS: ASPIRIN 81 MG TAB.CHEW PO SCH (08:16)
[2020-11-11] MEDS: INSULIN LISPRO 1 UNIT/0.01 ML UNIT SQ SCH ×4 (08:16→20:40)
[2020-11-11] MEDS: ENOXAPARIN 40 MG/0.4 ML SYRINGE SQ SCH (08:16)
[2020-11-11] MEDS: CLOPIDOGREL 75 MG TABLET PO SCH (08:16)
[2020-11-11] MEDS: DOCUSATE SODIUM 100 MG CAPSULE PO SCH ×2 (08:16→20:23)
--- NOTE | 2020-11-11 09:23 | Internal Med Progress Note ---
SUBJECTIVE Subjective Patient information: Note initiated : 11/11/20 at 9:19 am Service Date, if different from initiated Date: [] Patient: Xiomara Carty a 85 y/o F admitted on 11/10/20 for Found on floor by family member, n/v/d. Chief Complaint: [] Interval history: History of present illness: Ms. Carty is a 85 year old F Female who says she woke up yesterday feeling fine. She had her second Covid shot and went home and was doing all right. She had a little bit of something to eat. Sometime later she was in her kitchen but before 9 when she was considering going to bed and she says she turned around and became dizzy and unsteady and sat down on a stool in her kitchen and then down on the floor. She was too weak to get up and so she laid in there overnight. Work-up in the ER included a stroke work-up which did show a acute left cere bellar vermis infarct. Verbal report to the ER provider mentioned patient was sent carotids stenosis in the external it sounds like. She did have some stenosis in the PICA. Case discussed with stroke neurologist to said no intervention other than medical and to treat with aspirin and Plavix and statin work-up of echo as well as lipid. She was found of elevated blood pressure in the ER as well. Labs were unremarkable. Creatinine stable. She denies any history of heart failure says she was on oxygen for years ago when she had a stroke but has not been on it a while. She is on Sinemet but denies having Parkinson's. She does not know if she is on Plavix although is listed on an old list. Patient is quite poor historian. Sound like she has some dementia per discussion with ER provider. CT chest mentioned chf but clinically not apparent at this time. 11/11 She states she is feeling a little better today. She work with PT in the room but was unsteady. On room air. No other acute issues or complaints. Her son was present and I did explain to him that I would be referring her to to see Dr. Palmer and that the stroke neurologist reviewed imaging last night and indicated no urgent intervention to treat medically the acute episode. Review of Systems: denies headache/fever/chills/nausea/vomiting/chest or abdominal pain/cough/dyspnea/diarrhea. Otherwise see above. Constitutional Vitals: Vital Signs Temp Pulse Resp BP Pulse Ox 98.9 F 82 15 156/78 94 11/11/20 04:01 11/11/20 08:12 11/11/20 08:12 11/11/20 08:10 11/11/20 08:12 Period Temp Pulse Resp BP Sys/Su Pulse Ox Last 24 Hr 97.5 F-99.7 F 45-94 12-26 113-209/41-112 82-100 Intake and Output 11/10/20 11/11/20 11/11/20 21:59 05:59 13:59 Intake Total 760 293 3278 Output Total 400 450 200 Balance -160 -10 800 Weight 89.403 kg Intake & Output: Intake & Output 11/10/20 11/11/20 11/11/20 21:59 05:59 13:59 Intake Total 379 327 9121 Output Total 400 450 200 Balance -160 -10 800 Weight 89.403 kg Intake: IV 1000 Sodium Chloride 0.9% 1,000 ml @ 1000 Wide Open IV BOLUS ONE Rx#: [id number] Oral 240 440 Output: Void Amount 400 450 200 Other: Urine Appearance Clear Clear Urine Color Bright Yellow Dark Yellow Urine Odor Strong Strong Stool Size Small Large Stool Color Brown Brown Stool Consistency Soft Formed # Bowel Movements 1 1 # Emeses 4 6 Exam: General: Alert, Awake, No acute Distress, obese Eyes/N/T: EOMI, Head/Neck: neck supple, CV: RRR, No murmurs, Pulm: Clear b/l, no wheezing/rhonchi/rales Abd: soft, nontender, +BS x4 Ext: no clubbing/cyanosis/edema Neuro: Alert, moves all extremities, Skin: warm/dry OBJ DATA Labs CBC & Chem 7: 11/10/20 12:20 11/11/20 05:14 Labs: Abnormal Lab Results 11/11/20 11/10/20 11/10/20 05:14 13:35 12:20 MCV MCH RDW MPV Neut % (Auto) Lymph % (Auto) Lymph # (Auto) Absolute Neutrophils VBG Lactic Acid BUN 24 H Creatinine 1.2 H Glucose 147 H Phosphorus 4.6 H Alkaline Phosphatase 129 H Albumin 3.1 L Triglycerides 154 H 153 H Urine Protein >=500 A Urine Glucose (UA) >=500 A Urine RBC 9 H Urine Mucus Few A 11/10/20 11/10/20 11/10/20 12:20 12:20 12:20 MCV 79.8 L MCH 25.0 L RDW 17.0 H MPV 10.8 H Neut % (Auto) 86.8 H Lymph % (Auto) 9.0 L Lymph # (Auto) 0.90 L Absolute Neutrophils 8.65 H VBG Lactic Acid 2.4 H BUN 25 H Creatinine 1.2 H Glucose 218 H Phosphorus Alkaline Phosphatase 157 H Albumin Triglycerides Urine Protein Urine Glucose (UA) Urine RBC Urine Mucus Meds: Medications Acetaminophen (Acetaminophen 325 Mg Tablet) 650 mg PO Q6HP PRN PRN Reason: PAIN/FEVER > 101 Last Admin: 11/11/20 08:19 Dose: 650 mg Documented by: Albuterol/Ipratropium (Ipratropium/Albuterol 3 Ml Ampul.Neb) 3 ml NEB Q4HP PRN PRN Reason: Shortness Of Breath Aspirin (Aspirin 81 Mg Tab.Chew) 81 mg PO DAILY [facility] Last Admin: 11/11/20 08:16 Dose: 81 mg Documented by: Atorvastatin Calcium (Atorvastatin 40 Mg Tablet) 80 mg PO HS [facility] Last Admin: 11/10/20 21:16 Dose: 80 mg Documented by: Clopidogrel Bisulfate (Clopidogrel 75 Mg Tablet) 75 mg PO DAILY [facility] Last Admin: 11/11/20 08:16 Dose: 75 mg Documented by: Dextrose (Dextrose 50% 50 Ml Vial) 0 ml IV UD PRN PRN Reason: Hypoglycemia Diagnostic Test (Pha) (Accu-Chek 1 Each Strip) 1 each FS ACHS [facility] Last Admin: 11/11/20 08:15 Dose: 1 each Documented by: Docusate Sodium (Docusate Sodium 100 Mg Capsule) 100 mg PO BID [facility] Last Admin: 11/11/20 08:16 Dose: Not Given Documented by: Enoxaparin Sodium (Enoxaparin 40 Mg/0.4 Ml Syringe) 40 mg SQ DAILY [facility] Last Admin: 11/11/20 08:16 Dose: 40 mg Documented by: Glucose (Dextrose 31 Gm Oral.Susp) 15 gm PO PRN PRN PRN Reason: Hypoglycemia Hydralazine HCl (Hydralazine 20 Mg/Ml Vial) 0 mg IV Q2HP PRN PRN Reason: Hypertension Potassium Chloride 40 meq/ (Dextrose) 520 mls @ 130 mls/hr IV UD PRN PRN Reason: Potassium < 3 Magnesium Sulfate (Magnesium Sulfate) 2 gm in 50 mls @ 50 mls/hr IV UD PRN PRN Reason: Magnesium </= 1.6 Insulin Human Lispro (Insulin Lispro 1 Unit/0.01 Ml Unit) 0 unit SQ ACHS [facility]; Protocol Last Admin: 11/11/20 08:16 Dose: Not Given Documented by: Labetalol HCl (Labetalol 5 Mg/Ml Ml) 0 mg IV Q2HP PRN PRN Reason: Hypertension Lactulose (Lactulose 20 Gm/30 Ml Oral.Morelia) 20 gm PO DAILYP PRN PRN Reason: Constipation Ondansetron HCl (Ondansetron 4 Mg/2 Ml Vial) 4 mg IV Q4HP PRN PRN Reason: Nausea And Vomiting Last Admin: 11/11/20 01:47 Dose: 4 mg Documented by: Pantoprazole Sodium (Pantoprazole 40 Mg Tablet) 40 mg PO QAMAC [facility] Last Admin: 11/11/20 08:16 Dose: 40 mg Documented by: Potassium Chloride (Potassium Chloride 20 Meq Tablet) 40 meq PO UD PRN PRN Reason: Potssium is 3-3.5 Potassium Chloride (Potassium Chloride 20 Meq Tablet) 40 meq PO UD PRN PRN Reason: Potassium < 3 Senna (Sennosides 1 Tablet) 2 tab PO DAILYP PRN PRN Reason: Constipation Sodium Chloride (0.9 % Sodium Chloride 10 Ml Syringe) 10 ml IV Q8 [facility] Last Admin: 11/11/20 05:33 Dose: 10 ml Documented by: A/P Narrative A/P Narrative: A: *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): -case discussed with stroke neurologist regarding MRA findings, recs to treat medically no interventions -also has left carotid aa stenosis *Dementia, mild: high risk for delirium inpt *HTN: acute on chronic 2/2 above *DM: *CKD III: *Dementia, mild: *Obesity: *GERD: *RLS: on sinemet *?Acute hypoxic resp failure: low sat initially in ED and placed on O2, when I saw in ED she had sats 98 so i removed while i visited with her and sats remained high -CT chest with some bibasilar infiltrates, she has no peripheral edema and actually appears dry, no cough -on room air P: -ASA/Plavix -statin/lipid panel -permissive HTN first 24-48, holding home meds and likely restart gradually in AM. will start to bring down prn IV parameters -Bedside swallow eval good results -Echo pending -neurochecks -hold home diuretics for now -f/u with Dr. Palmer for carotid aa stenosis -PT/OT -CM for placement needs -ppx: Lovenox DNR Time Spent With Patient Time: Total time spent is greater than 50% in coordination of care (as documented) at patient's floor/unit and/or counseling patient: QUALITY Stroke Symptom Onset Unknown: Yes VTE Deep Vein Thrombosis/Pulmonary Embolism Present on Admission: No
[2020-11-11] MEDS ORDERED: LABETALOL 5 MG/ML ML IV PRN (09:25)
[2020-11-11] MEDS ORDERED: traZODone HCL 100 MG TABLET PO PRN (09:25)
[2020-11-11] MEDS ORDERED: traMADol 50 MG TABLET PO PRN (09:25)
[2020-11-11] MEDS ORDERED: hydrALAZINE 20 MG/ML VIAL IV PRN (09:25)
[2020-11-11] MEDS: rOPINIRole 1 MG TABLET PO SCH ×2 (10:39→20:39)
[2020-11-11] MEDS: CARBIDOPA/LEVODOPA 25/100 TABLET PO SCH (10:39)
[2020-11-11] MEDS: DULoxetine 30 MG CAPSULE PO SCH (10:39)
[2020-11-11] MEDS: ATORVASTATIN 40 MG TABLET PO SCH (20:38)
[2020-11-11] MEDS ORDERED: ALLOPURINOL 100 MG TABLET PO SCH (21:00)
[2020-11-11] MEDS ORDERED: GABAPENTIN 300 MG CAPSULE PO SCH (21:00)
[2020-11-12] MEDS: 0.9 % SODIUM CHLORIDE 10 ML SYRINGE IV SCH ×3 (05:26→20:41)
--- NOTE | 2020-11-12 07:51 | Internal Med Progress Note ---
SUBJECTIVE Subjective Patient information: Note initiated : 11/12/20 at 7:49 am Service Date, if different from initiated Date: [] Patient: Xiomara Carty a 85 y/o F admitted on 11/10/20 for Found on floor by family member, n/v/d. Chief Complaint: [] Interval history: History of present illness: Ms. Carty is a 85 year old F Female who says she woke up yesterday feeling fine. She had her second Covid shot and went home and was doing all right. She had a little bit of something to eat. Sometime later she was in her kitchen but before 9 when she was considering going to bed and she says she turned around and became dizzy and unsteady and sat down on a stool in her kitchen and then down on the floor. She was too weak to get up and so she laid in there overnight. Work-up in the ER included a stroke work-up which did show a acute left cere bellar vermis infarct. Verbal report to the ER provider mentioned patient was sent carotids stenosis in the external it sounds like. She did have some stenosis in the PICA. Case discussed with stroke neurologist to said no intervention other than medical and to treat with aspirin and Plavix and statin work-up of echo as well as lipid. She was found of elevated blood pressure in the ER as well. Labs were unremarkable. Creatinine stable. She denies any history of heart failure says she was on oxygen for years ago when she had a stroke but has not been on it a while. She is on Sinemet but denies having Parkinson's. She does not know if she is on Plavix although is listed on an old list. Patient is quite poor historian. Sound like she has some dementia per discussion with ER provider. CT chest mentioned chf but clinically not apparent at this time. 11/11 She states she is feeling a little better today. She work with PT in the room but was unsteady. On room air. No other acute issues or complaints. Her son was present and I did explain to him that I would be referring her to to see Dr. Palmer and that the stroke neurologist reviewed imaging last night and indicated no urgent intervention to treat medically the acute episode. 11/12 No overnight events. Has a headache this morning. Occasional mild nausea. Case management for placement. Review of Systems: denies /fever/chills/vomiting/chest or abdominal pain/cough/dyspnea/diarrhea. Otherwise see above. Constitutional Vitals: Vital Signs Temp Pulse Resp BP Pulse Ox 98.3 F 50 L 11 L 161/58 98 11/12/20 00:01 11/12/20 06:06 11/12/20 06:06 11/12/20 06:01 11/12/20 06:06 Period Temp Pulse Resp BP Sys/Su Pulse Ox Last 24 Hr 97.9 F-98.3 F 49-94 11-29 129-196/14-90 89-98 Intake and Output 11/11/20 11/12/20 11/12/20 21:59 05:59 13:59 Intake Total 180 600 Output Total 475 Balance 180 125 Weight 90.31 kg Intake & Output: Intake & Output 11/11/20 11/12/20 11/12/20 21:59 05:59 13:59 Intake Total 180 600 Output Total 475 Balance 180 125 Weight 90.31 kg Intake: Oral 180 600 Output: Urine Catheter Amount 475 Other: Meal Dinner Percent of Meal Consumed 50% Feeding Ability Assist with Tray Set Up Urine Appearance Clear Sediment Urine Color Dark Yellow Dark Yellow Urine Odor Strong Strong Stool Size Small Stool Color Brown Stool Consistency Soft Formed # Voids 200 Exam: General: Alert, Awake, No acute Distress, obese Eyes/N/T: EOMI, Head/Neck: neck supple, CV: RRR, No murmurs, Pulm: Clear b/l, no wheezing/rhonchi/rales Abd: soft, nontender, +BS x4 Ext: no clubbing/cyanosis/edema Neuro: Alert, moves all extremities, Skin: warm/dry OBJ DATA Labs CBC & Chem 7: 11/10/20 12:20 11/11/20 05:14 Labs: Abnormal Lab Results 11/11/20 11/10/20 11/10/20 05:14 13:35 12:20 MCV MCH RDW MPV Neut % (Auto) Lymph % (Auto) Lymph # (Auto) Absolute Neutrophils VBG Lactic Acid BUN 24 H Creatinine 1.2 H Glucose 147 H Phosphorus 4.6 H Alkaline Phosphatase 129 H Albumin 3.1 L Triglycerides 154 H 153 H Urine Protein >=500 A Urine Glucose (UA) >=500 A Urine RBC 9 H Urine Mucus Few A 11/10/20 11/10/20 11/10/20 12:20 12:20 12:20 MCV 79.8 L MCH 25.0 L RDW 17.0 H MPV 10.8 H Neut % (Auto) 86.8 H Lymph % (Auto) 9.0 L Lymph # (Auto) 0.90 L Absolute Neutrophils 8.65 H VBG Lactic Acid 2.4 H BUN 25 H Creatinine 1.2 H Glucose 218 H Phosphorus Alkaline Phosphatase 157 H Albumin Triglycerides Urine Protein Urine Glucose (UA) Urine RBC Urine Mucus Meds: Medications Acetaminophen (Acetaminophen 325 Mg Tablet) 650 mg PO Q6HP PRN PRN Reason: PAIN/FEVER > 101 Last Admin: 11/11/20 20:39 Dose: 650 mg Documented by: Albuterol/Ipratropium (Ipratropium/Albuterol 3 Ml Ampul.Neb) 3 ml NEB Q4HP PRN PRN Reason: Shortness Of Breath Allopurinol (Allopurinol 100 Mg Tablet) 200 mg PO [facility] Last Admin: 11/11/20 20:38 Dose: 200 mg Documented by: Aspirin (Aspirin 81 Mg Tab.Chew) 81 mg PO DAILY [facility] Last Admin: 11/11/20 08:16 Dose: 81 mg Documented by: Atorvastatin Calcium (Atorvastatin 40 Mg Tablet) 80 mg PO [facility] Last Admin: 11/11/20 20:38 Dose: 80 mg Documented by: Carbidopa/Levodopa (Carbidopa/Levodopa 25/100 Tablet) 1 tab PO DAILY [facility] Last Admin: 11/11/20 10:39 Dose: 1 tab Documented by: Clopidogrel Bisulfate (Clopidogrel 75 Mg Tablet) 75 mg PO DAILY [facility] Last Admin: 11/11/20 08:16 Dose: 75 mg Documented by: Dextrose (Dextrose 50% 50 Ml Vial) 0 ml IV UD PRN PRN Reason: Hypoglycemia Diagnostic Test (Pha) (Accu-Chek 1 Each Strip) 1 each FS ACHS [facility] Last Admin: 11/11/20 20:40 Dose: 1 each Documented by: Docusate Sodium (Docusate Sodium 100 Mg Capsule) 100 mg PO BID [facility] Last Admin: 11/11/20 20:23 Dose: Not Given Documented by: Duloxetine HCl (Duloxetine 30 Mg Capsule) 60 mg PO DAILY [facility] Last Admin: 11/11/20 10:39 Dose: 60 mg Documented by: Enoxaparin Sodium (Enoxaparin 40 Mg/0.4 Ml Syringe) 40 mg SQ DAILY [facility] Last Admin: 11/11/20 08:16 Dose: 40 mg Documented by: Gabapentin (Gabapentin 300 Mg Capsule) 300 mg PO [facility] Last Admin: 11/11/20 20:38 Dose: 300 mg Documented by: Glimepiride (Glimepiride 2 Mg Tablet) 4 mg PO DAILY@1200 [facility] Glucose (Dextrose 31 Gm Oral.Susp) 15 gm PO PRN PRN PRN Reason: Hypoglycemia Hydralazine HCl (Hydralazine 20 Mg/Ml Vial) 0 mg IV Q2HP PRN PRN Reason: Hypertension Potassium Chloride 40 meq/ (Dextrose) 520 mls @ 130 mls/hr IV UD PRN PRN Reason: Potassium < 3 Magnesium Sulfate (Magnesium Sulfate) 2 gm in 50 mls @ 50 mls/hr IV UD PRN PRN Reason: Magnesium </= 1.6 Insulin Human Lispro (Insulin Lispro 1 Unit/0.01 Ml Unit) 0 unit SQ [facility]; Protocol Last Admin: 11/11/20 20:40 Dose: 2 units Documented by: Labetalol HCl (Labetalol 5 Mg/Ml Ml) 0 mg IV Q2HP PRN PRN Reason: Hypertension Lactulose (Lactulose 20 Gm/30 Ml Oral.Morelia) 20 gm PO DAILYP PRN PRN Reason: Constipation Ondansetron HCl (Ondansetron 4 Mg/2 Ml Vial) 4 mg IV Q4HP PRN PRN Reason: Nausea And Vomiting Last Admin: 11/11/20 01:47 Dose: 4 mg Documented by: Pantoprazole Sodium ([facility] 40 Mg Tablet) [facility] Last Admin: 11/11/20 08:16 Dose: 40 mg Documented by: Potassium Chloride (Potassium Chloride 20 Meq Tablet) 40 meq PO UD PRN PRN Reason: Potssium is 3-3.5 Last Admin: 11/11/20 18:20 Dose: 40 meq Documented by: Potassium Chloride (Potassium Chloride 20 Meq Tablet) 40 meq PO UD PRN PRN Reason: Potassium < 3 Ropinirole HCl (Ropinirole 1 Mg Tablet) 1 mg PO BID [facility] Last Admin: 11/11/20 20:39 Dose: 1 mg Documented by: Senna (Sennosides 1 Tablet) 2 tab PO DAILYP PRN PRN Reason: Constipation Sodium Chloride (0.9 % Sodium Chloride 10 Ml Syringe) 10 ml IV Q8 [facility] Last Admin: 11/12/20 05:26 Dose: 10 ml Documented by: Tramadol HCl (Tramadol 50 Mg Tablet) 50 mg PO Q6HP PRN; Protocol PRN Reason: Pain Trazodone HCl (Trazodone Hcl 100 Mg Tablet) 100 mg PO HSP PRN PRN Reason: Insomnia A/P Narrative A/P Narrative: A: *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): -case discussed with stroke neurologist regarding MRA findings, recs to treat medically no interventions -also has left carotid aa stenosis *Dementia, mild: high risk for delirium inpt *HTN: acute on chronic 2/2 above *DM: *CKD III: *Dementia, mild: *Obesity: *GERD: *RLS: on sinemet *?Acute hypoxic resp failure: low sat initially in ED and placed on O2, when I saw in ED she had sats 98 so i removed while i visited with her and sats remained high -CT chest with some bibasilar infiltrates, she has no peripheral edema and actually appears dry, no cough -old films show interstitial lung dz -on room air although while sleeping did dip to 87 last night, suspect component of david P: -ASA/Plavix -statin/lipid panel -permissive HTN initally, restarting home BP meds gradually -Bedside swallow eval good results -Echo pending -neurochecks -hold home diuretics for now -f/u with Dr. Palmer for carotid aa stenosis -PT/OT -CM for placement needs -f/u with pulm for sleep study -ppx: Lovenox DNR Time Spent With Patient Time: Total time spent is greater than 50% in coordination of care (as documented) at patient's floor/unit and/or counseling patient: QUALITY Stroke Symptom Onset Unknown: Yes VTE Deep Vein Thrombosis/Pulmonary Embolism Present on Admission: No
[2020-11-12] MEDS: INSULIN LISPRO 1 UNIT/0.01 ML UNIT SQ SCH ×4 (08:04→20:49)
[2020-11-12] MEDS: DOCUSATE SODIUM 100 MG CAPSULE PO SCH ×2 (08:07→20:39)
[2020-11-12] MEDS: ENOXAPARIN 40 MG/0.4 ML SYRINGE SQ SCH (08:09)
[2020-11-12] MEDS: PANTOPRAZOLE 40 MG TABLET PO SCH (08:10)
[2020-11-12] MEDS: ASPIRIN 81 MG TAB.CHEW PO SCH (08:10)
[2020-11-12] MEDS: CLOPIDOGREL 75 MG TABLET PO SCH (08:10)
[2020-11-12] MEDS: rOPINIRole 1 MG TABLET PO SCH ×2 (08:17→20:38)
[2020-11-12] MEDS: DULoxetine 30 MG CAPSULE PO SCH (08:17)
[2020-11-12] MEDS: CARBIDOPA/LEVODOPA 25/100 TABLET PO SCH (08:17)
[2020-11-12] MEDS ORDERED: hydrALAZINE 25 MG TABLET PO SCH (09:00)
[2020-11-12] MEDS ORDERED: MAGNESIUM SULFATE 2 GM/50 ML BAG IV PRN (09:05)
[2020-11-12] MEDS ORDERED: ONDANSETRON 4 MG/2 ML VIAL IV PRN (09:05)
[2020-11-12] MEDS ORDERED: IPRATROPIUM/ALBUTEROL 3 ML AMPUL.NEB NEB PRN (09:05)
[2020-11-12] MEDS ORDERED: LACTULOSE 20 GM/30 ML ORAL.SOL PO PRN (09:05)
[2020-11-12] MEDS ORDERED: traZODone HCL 100 MG TABLET PO PRN (09:05)
[2020-11-12] MEDS ORDERED: DEXTROSE 31 GM ORAL.SUSP PO PRN (09:05)
[2020-11-12] MEDS ORDERED: SENNOSIDES 1 TABLET PO PRN (09:05)
[2020-11-12] MEDS ORDERED: hydrALAZINE 20 MG/ML VIAL IV PRN (09:05)
[2020-11-12] MEDS ORDERED: POTASSIUM CHLORIDE 40 MEQ in DEXTROSE 5% IN WATER 500 ML IV PRN (09:05)
[2020-11-12] MEDS ORDERED: ACETAMINOPHEN 325 MG TABLET PO PRN (09:05)
[2020-11-12] MEDS ORDERED: LABETALOL 5 MG/ML ML IV PRN (09:05)
[2020-11-12] MEDS ORDERED: traMADol 50 MG TABLET PO PRN (09:05)
[2020-11-12] MEDS ORDERED: DEXTROSE 50% 50 ML VIAL IV PRN (09:05)
[2020-11-12] MEDS ORDERED: POTASSIUM CHLORIDE 20 MEQ TABLET PO PRN ×2 (09:05)
--- NOTE | 2020-11-12 10:29 | Discharge Summary ---
Discharge Provider Provider Patient information: Note initiated : 11/12/20 at 10:28 am Service Date, if different from initiated Date: [] Patient: Xiomara Carty 85 y/o F admitted on 11/10/20 for Found on floor by family member, n/v/d. Chief Complaint: [] Date of admission: 11/10/20 17:54 Discharge date: 11/13/20 Primary care physician: ANDRAE Alaniz Consults: 11/10/20 16:40 Consult to Physician [CONS] Stat Comment: Consulting Provider: Manjit Garcia Reason For Exam: Physician to Consult Discharge Meds Discharge Medications Home Medications allopurinol 200 mg PO HS 11/10/20 [History Confirmed 11/10/20 Last Taken Unknown] amlodipine 2.5 mg PO DAILY 11/10/20 [History Confirmed 11/10/20 Last Taken Unknown] carbidopa-levodopa 1 tab PO DAILY 11/10/20 [History Confirmed 11/10/20 Last Taken Unknown] carvedilol 25 mg PO BID 11/10/20 [History Confirmed 11/10/20 Last Taken Unknown] duloxetine 60 mg PO DAILY 11/10/20 [History Confirmed 11/10/20 Last Taken Unknown] furosemide 40 mg PO DAILY 11/10/20 [History Confirmed 11/10/20 Last Taken Unknown] gabapentin 300 mg PO HS 11/10/20 [History Confirmed 11/10/20 Last Taken Unknown] glimepiride 4 mg PO DAILY 11/10/20 [History Confirmed 11/10/20 Last Taken Unknown] losartan 100 mg PO HS 11/10/20 [History Confirmed 11/10/20 Last Taken Unknown] ropinirole 1 mg PO BID 11/10/20 [History Confirmed 11/10/20 Last Taken Unknown] tramadol 50 mg PO Q6HP PRN 11/10/20 [History Confirmed 11/10/20 Last Taken Unknown] trazodone 100 mg PO HSP PRN 11/10/20 [History Confirmed 11/10/20 Last Taken Unknown] triamterene-hydrochlorothiazid 1 tab PO DAILY 11/10/20 [History Confirmed 11/10/20 Last Taken Unknown] aspirin 81 mg PO QDAY 11/11/20 [History Confirmed 11/11/20 Last Taken Unknown] famotidine [Acid Lens Blank Gauger (famotidine)] 20 mg PO DAILY 11/11/20 [History Confirmed 11/11/20 Last Taken Unknown] hydralazine 25 mg PO BID 11/11/20 [History Confirmed 11/11/20 Last Taken Unknown] atorvastatin 20 mg PO HS #60 tab 11/12/20 [Rx Last Taken Unknown] clopidogrel 75 mg PO DAILY #30 tab 11/12/20 [Rx Last Taken Unknown] COURSE Hospital Course Hospital course: History of present illness: Ms. Carty is a 85 year old F Female who says she woke up yesterday feeling fine. She had her second Covid shot and went home and was doing all right. She had a little bit of something to eat. Sometime later she was in her kitchen but before 9 when she was considering going to bed and she says she turned around and became dizzy and unsteady and sat down on a stool in her kitchen and then down on the floor. She was too weak to get up and so she laid in there overnight. Work-up in the ER included a stroke work-up which did show a acute left cerebellar vermis infarct. Verbal report to the ER provider mentioned patient was sent carotids stenosis in the external it sounds like. She did have some stenosis in the PICA. Case discussed with stroke neurologist to said no intervention other than medical and to treat with aspirin and Plavix and statin work-up of echo as well as lipid. She was found of elevated blood pressure in the ER as well. Labs were unremarkable. Creatinine stable. She denies any history of heart failure says she was on oxygen for years ago when she had a stroke but has not been on it a while. She is on Sinemet but denies having Parkinson's. She does not know if she is on Plavix although is listed on an old list. Patient is quite poor historian. Sound like she has some dementia per discussion with ER provider. CT chest mentioned chf but clinically not apparent at this time. 11/11 She states she is feeling a little better today. She work with PT in the room but was unsteady. On room air. No other acute issues or complaints. Her son was present and I did explain to him that I would be referring her to to see Dr. Palmer and that the stroke neurologist reviewed imaging last night and indicated no urgent intervention to treat medically the acute episode. 11/12 No overnight events. Has a headache this morning. Occasional mild nausea. Case management for placement. 3/2 No issues overnight. 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): -case discussed with stroke neurologist regarding MRA findings, recs to treat medically no interventions -also has left carotid aa stenosis *Dementia, mild: high risk for delirium inpt *HTN: acute on chronic 2/2 above *DM: *CKD III: *Dementia, mild: *Obesity: *Suspect VANDANA: *GERD: *RLS: on sinemet Discharge diagnosis: Acute posterior circulation CVA history of strokes dementia Secondary discharge diagnosis: Diabetes hypertension chronic kidney disease obesity suspected VANDANA GERD Time Spent with Patient Time attestation: Total time spent providing and/or coordinating discharge services: Time spent: Greater than 30 minutes EXAM Constitutional Vitals: Temp Pulse Resp BP Pulse Ox 97.8 F 69 24 H 160/54 99 11/12/20 08:05 11/12/20 08:07 11/12/20 07:52 11/12/20 08:05 11/12/20 08:07 Discharge Data Data Completed and Pending Labs on day of discharge: Preliminary micro results at discharge 11/10/20 13:35 Urine Culture - Preliminary Urine - Clean Void Mid-Stream Discharge Plan Patient/Caregiver Discharge Instructions Activity: increase activity as tolerated Diet: Low Fat and Consistent Carbohydrate Activity Restrictions/Additional Instructions: referral to see pulmonology for VANDANA evaluation 1-3 weeks Prescriptions: Continued carvedilol 25 mg tablet 25 mg PO BID RF: 0 amlodipine 2.5 mg tablet 2.5 mg PO DAILY RF: 0 allopurinol 100 mg tablet 200 mg PO HS RF: 0 carbidopa-levodopa 25-100 mg tablet 1 tab PO DAILY RF: 0 furosemide 40 mg tablet 40 mg PO DAILY RF: 0 gabapentin 300 mg capsule 300 mg PO HS RF: 0 duloxetine 60 mg capsule,delayed release(DR/EC) 60 mg PO DAILY RF: 0 ropinirole 1 mg tablet 1 mg PO BID RF: 0 tramadol 50 mg tablet 50 mg PO Q6HP PRN (Reason: Pain) RF: 0 trazodone 100 mg tablet 100 mg PO HSP PRN (Reason: Insomnia) RF: 0 glimepiride 4 mg tablet 4 mg PO DAILY RF: 0 triamterene-hydrochlorothiazid 37.5-25 mg tablet 1 tab PO DAILY RF: 0 losartan 100 mg tablet 100 mg PO HS RF: 0 aspirin 81 mg Tablet,Chewable 81 mg PO QDAY RF: 0 famotidine [Acid Lens Blank Gauger (famotidine)] 20 mg tablet 20 mg PO DAILY RF: 0 hydralazine 50 mg tablet 25 mg PO BID RF: 0 clopidogrel 75 mg tablet 75 mg PO DAILY Qty: 30 RF: 0 Changed atorvastatin 10 mg tablet 20 mg PO HS Qty: 60 RF: 0 Follow Up Plan Follow up with: Hadley Palmer MD [Physician] - (Carotid artery stenosis) Jessica Sow ARNP [Primary Care Provider] - Patient Disposition: Xfer SNF Prognosis: Fair Rehab Potential: Fair I certify that the patient requires SNF services: Yes Overall status at discharge: patient is progressing back to baseline Discharge Orders: Discharge Order (Routine); Ordered 11/13/20 Ordered By: Manjit Garcia [facility] Deep Vein Thrombosis/Pulmonary Embolism Present on Admission: No
[2020-11-12] MEDS ORDERED: GLIMEPIRIDE 2 MG TABLET PO SCH ×2 (12:00)
[2020-11-12] MEDS: hydrALAZINE 25 MG TABLET PO SCH ×3 (13:28→20:39)
[2020-11-12] MEDS ORDERED: LOSARTAN 50 MG TABLET PO SCH ×2 (21:00)
[2020-11-12] MEDS ORDERED: ALLOPURINOL 100 MG TABLET PO SCH (21:00)
[2020-11-12] MEDS ORDERED: ATORVASTATIN 40 MG TABLET PO SCH (21:00)
[2020-11-12] MEDS ORDERED: GABAPENTIN 300 MG CAPSULE PO SCH (21:00)
[2020-11-13] MEDS: INSULIN LISPRO 1 UNIT/0.01 ML UNIT SQ SCH ×2 (06:55→10:48)
[2020-11-13] MEDS: 0.9 % SODIUM CHLORIDE 10 ML SYRINGE IV SCH (06:55)
[2020-11-13] MEDS ORDERED: PANTOPRAZOLE 40 MG TABLET PO SCH (07:30)
[2020-11-13] MEDS ORDERED: CARVEDILOL 12.5 MG TABLET PO SCH (08:00)
[2020-11-13] MEDS: rOPINIRole 1 MG TABLET PO SCH (08:31)
[2020-11-13] MEDS: DOCUSATE SODIUM 100 MG CAPSULE PO SCH (08:31)
[2020-11-13] MEDS: hydrALAZINE 25 MG TABLET PO SCH (08:34)
[2020-11-13] MEDS ORDERED: DULoxetine 30 MG CAPSULE PO SCH (09:00)
[2020-11-13] MEDS ORDERED: CARBIDOPA/LEVODOPA 25/100 TABLET PO SCH (09:00)
[2020-11-13] MEDS ORDERED: ASPIRIN 81 MG TAB.CHEW PO SCH (09:00)
[2020-11-13] MEDS ORDERED: CLOPIDOGREL 75 MG TABLET PO SCH (09:00)
[2020-11-13] MEDS ORDERED: ENOXAPARIN 40 MG/0.4 ML SYRINGE SQ SCH (09:00)
== END 2020-11-13 11:35 | DRG 66 ==
LOC: ED 11:12 → MERGE 11:12 → ICU 17:54 → MEDSUR 11-12 15:25
PROVIDERS: ADMIT Internal Medicine; ATTEND Internal Medicine